=== PATIENT | female | born 1935 | race Caucasian/White ===

== ENCOUNTER 2018-11-10 09:35 | Inpatient (IN) | payer MEDICARE, OTHER ==
[~2018-11-10] VITALS: Ht 172.7 cm; Wt 104.3 kg
[~2018-11-10 09:35] MED LIST: ACET325T9 PO; ACID1TAB13 PO; AMOX500C PO; ASPI81TA50 PO; BISA10SU2 RC; CALC300T42 PO; CHOL100013 PO; CYAN250T PO; DOCU100C28 PO; DULO30CA2 PO; FENT1PAT17 TD; HYDR-2765 PO; HYDR28.3 TP; LEVO50TA5 PO; LOPE2CAP PO; MAGN400O7 PO; MAGN400T3 PO; METO-239 PO; MULT1TAB52 PO; NITR100C62 PO; POLY17PO29 PO; TIZA4TAB PO; UBID100C PO; WARF-78 PO
[2018-11-10 11:00] VITALS: BP 153/76
[2018-11-10] MEDS ORDERED: FAMO40TA4 PO (11:00)
[2018-11-10] MEDS ORDERED: AMLO5TAB10 PO (11:00)
[2018-11-10] MEDS ORDERED: ATOR20TA58 PO (11:00)
[2018-11-10] MEDS ORDERED: APIX2.5T PO (11:00)
[2018-11-10] MEDS ORDERED: CALC-515 PO (11:00)
[2018-11-10] MEDS ORDERED: AMIN30LI PO (11:00)
[2018-11-10] MEDS ORDERED: CRAN425C3 PO (11:00)
[2018-11-10] MEDS ORDERED: ACET325T9 PO (11:00)
[2018-11-10] MEDS ORDERED: FENT1PAT93 TD (11:09)
[2018-11-10] MEDS ORDERED: NYST15PO9 TP (11:10)
[2018-11-10] MEDS ORDERED: LEVO75TA5 PO (11:10)
[2018-11-10] MEDS ORDERED: SODI30SP NS (11:10)
[2018-11-10] MEDS ORDERED: METO25TA4 PO (11:10)
[2018-11-10] MEDS ORDERED: ONDA4TAB11 PO (11:10)
[2018-11-10] MEDS ORDERED: BISACODYL 5 MG TABLET.DR. PO PRN (12:00)
[2018-11-10] MEDS: LACTOBACILLUS RHAMNOSUS GG 1 CAPSULE. PO SCH ×2 (12:27→19:58)
[2018-11-10] MEDS: DOCUSATE SODIUM 100 MG CAPSULE. PO SCH (12:27)
[2018-11-10] MEDS: APIXABAN 2.5 MG TABLET. PO SCH ×2 (12:27→19:58)
[2018-11-10] MEDS: METOPROLOL TART IMMED RELEASE 25 MG TABLET. PO SCH (12:27)
[2018-11-10] MEDS: MAGNESIUM OXIDE 400 MG TABLET PO SCH (12:28)
[2018-11-10] MEDS: amLODIPine BESYLATE 5 MG TABLET PO SCH (12:29)
[2018-11-10] MEDS: POLYETHYLENE GLYCOL 3350 17 GM PACKET. PO SCH (12:29)
[2018-11-10] MEDS: FAMOTIDINE 20 MG TABLET. PO SCH (12:29)
[2018-11-10] MEDS: LEVOTHYROXINE 75 MCG TABLET PO SCH (12:30)
[2018-11-10] MEDS ORDERED: LOPERAMIDE 2 MG CAPSULE PO PRN (12:30)
[2018-11-10] MEDS: NYSTATIN TOPICAL POWDER 15GM BOTTLE. TP SCH ×2 (12:30→19:59)
[2018-11-10] MEDS ORDERED: SODIUM CHLORIDE 0.65% NASAL SPRAY 45ML BOTTLE. NS PRN (12:30)
[2018-11-10] MEDS: ACETAMINOPHEN 325 MG TABLET. PO SCH ×2 (12:30→20:00)
[2018-11-10] MEDS: CYANOCOBALAMIN (VITAMIN B-12) 1,000 MCG TABLET. PO SCH (12:30)
[2018-11-10] MEDS: MULTIVITAMIN with MINERAL TABLET. PO SCH (12:30)
[2018-11-10] MEDS: CHOLECALCIFEROL (VITAMIN D3) 1,000 UNIT TABLET PO SCH (12:30)
[2018-11-10] MEDS: ONDANSETRON ODT 4 MG TAB.RAPDIS. PO PRN ×2 (12:42→19:58)
[2018-11-10] MEDS: oxyCODONE/APAP 7.5/325 1 TAB TABLET PO PRN ×2 (12:43→19:59)
--- NOTE | 2018-11-10 13:52 | HP ---
ADMIT DATE: 11/10/2018 CHIEF COMPLAINT: Renal mass. HISTORY OF PRESENT ILLNESS: The patient is a pleasant 83-year-old female who presents with a renal mass. She was at [facility]. Her primary care doctor called me this morning and said they discovered a renal mass. She does have a history of a suprapubic Miller as well. I have accepted the patient as a transfer. She is now being examined in room 519. PAST MEDICAL HISTORY: Chronic anticoagulation, suprapubic Miller catheter, hypertension, chronic pain, arthritis, constipation, anemia, UTIs, hypothyroidism, GERD. ALLERGIES: MULTIPLE INCLUDING IODINE, PENICILLIN, SULFA, BACITRACIN, CEPHALEXIN, CIPRO, DEXAMETHASONE, DOXYCYCLINE, MORPHINE, MOXIFLOXACIN, NEOMYCIN, POLYMYXIN B, SILVER SULFADIAZINE, VANCOMYCIN. FAMILY HISTORY: Diabetes. SOCIAL HISTORY: She does not drink, smoke or take drugs. MEDICATIONS: Reviewed, please refer to the MRAD. REVIEW OF SYSTEMS: GENERAL: No history of weight change, weakness or fevers. SKIN: No bruising, hair changes or rashes. EYES: No blurred, double or loss of vision. NOSE AND THROAT: No history of nosebleeds, hoarseness or sore throat. HEART: No history of palpitations, chest pain or shortness of breath on exertion. LUNGS: Denies cough, hemoptysis, wheezing or shortness of breath. GASTROINTESTINAL: She complains of lower abdominal pain. GENITOURINARY: No history of frequency, urgency, hesitancy or nocturia. NEUROLOGIC: Denies history of numbness, tingling, tremor or weakness. PSYCHIATRIC: No history of panic, anxiety or depression. ENDOCRINE: No history of heat or cold intolerance, polyuria or polydipsia. EXTREMITIES: Denies muscle weakness, joint pain, pain on walking or stiffness. PHYSICAL EXAMINATION: VITAL SIGNS: Temperature is afebrile, pulse 92, respirations 18, blood pressure 144/90. GENERAL: She is alert, cooperative. HEART: Normal S1, S2. LUNGS: Clear to auscultation. ABDOMEN: Soft. There is a suprapubic Miller. ENDOCRINE: No thyromegaly. LYMPHATICS: No cervical nodes. HEMATOPOIETIC: No bruising. PSYCHIATRIC: She is stable. LABORATORY DATA: Pending. ASSESSMENT AND PLAN: Renal mass in a middle-aged female with above noted comorbidities. The patient has been admitted. We will consult Urology and Nephrology. Check CBC, BMP. DVT prophylaxis. Home meds, frequent labs. Full code. PROGNOSIS: Guarded. HAYDEE NEWTON DO DR: SG/chevy JOB#: [id number] / [id number]
--- NOTE | 2018-11-10 14:16 | PDOC2 ---
UROLOGY CONSULT Date of Consult Date of Consult DATE: 11/10/18 TIME: 14:01 Reason for Consult Reason for Consult: pyelonephritis, Rt renal stone; SP tube for ?hypotonic bladder, Chr UTI's; Mild R hydro; Generalized weakness and inanition Referring Physician Referring Physician: Sandro Identification/Chief Complaint Chief Complaint 83 yo WF w chr SP tube (10y) who had s/s L pyelo and was hospitalized for IV abx. She has migratory abdom pains Imaging revealed atrophic R kidney with a staghorn i lower pole and mild hydro, nl appearing L kidney except for a 1.3 cm hyperdense cyst. She had initial elev WBC (15) that decreased after abx tx. She was referred because of the L renal mass (benign) and chr cystitis. She has chr UTI's and has her SP Tube changed monthly. Source Source: Patient History of Present Illness Reason for Visit: abd pain on L side Current Medications Current Medications Current Medications Acetaminophen (Tylenol) 650 mg BID PO ; Start 11/10/18 at 12:30 Acetaminophen (Tylenol) 650 mg PRN Q8HRS PRN PO MILD PAIN; Start 11/10/18 at 12 :00 Amlodipine Besylate (Norvasc) 5 mg DAILY PO ; Start 11/10/18 at 12:30 Apixaban (Eliquis) 2.5 mg BID PO ; Start 11/10/18 at 12:30 Atorvastatin Calcium (Lipitor) 20 mg HS PO ; Start 11/10/18 at 21:00 Bisacodyl (Dulcolax Tab) 10 mg PRN Q12HRS PRN PO CONSTIPATION, 2nd CHOICE; Start 11/10/18 at 12:00 Cyanocobalamin (Vitamin B-12) 250 mcg DAILY PO ; Start 11/10/18 at 12:30 Docusate Sodium (Colace) 200 mg DAILY08 PO ; Start 11/10/18 at 12:30 Famotidine (Pepcid) 40 mg DAILY PO ; Start 11/10/18 at 12:30 Lactobacillus Rhamnosus (Culturelle) 1 cap BID PO ; Start 11/10/18 at 12:30 Levothyroxine Sodium (Synthroid) 75 mcg DAILYAC PO ; Start 11/10/18 at 12:30 Linezolid/Dextrose 300 ml @ 300 mls/hr Q12HR IV ; Start 11/10/18 at 13:00 Loperamide HCl (Imodium) 2 mg PRN QID PRN PO DIARRHEA; Start 11/10/18 at 12:30 Magnesium Hydroxide (Milk Of Magnesia) 400 mg PRN DAILY PRN PO CONSTIPATION; Start 11/10/18 at 12:00 Magnesium Oxide (Magnesium Oxide) 400 mg DAILY08 PO ; Start 11/10/18 at 12:30 Metoprolol Tartrate (Lopressor) 25 mg DAILY PO ; Start 11/10/18 at 12:30 Multivitamins (Thera M Plus) 1 tab DAILY08 PO ; Start 11/10/18 at 12:30 Non-Formulary Medication (Ubidecarenone (Coenzyme Q10)) 100 mg DAILY08 PO ; Start 11/11/18 at 08:00; Status UNV Nystatin (Nystop) 1 bob BID TP ; Start 11/10/18 at 12:30 Ondansetron HCl (Zofran Odt) 4 mg PRN Q6HRS PRN PO NAUSEA/VOMITING Last administered on 11/10/18at 12:42; Start 11/10/18 at 12:30 Oxycodone/ Acetaminophen (Percocet 7.5/ 325) 1 tab PRN Q6HRS PRN PO MODERATE TO SEVERE PAIN Last administered on 11/10/18at 12:43; Start 11/10/18 at 12:00 Polyethylene Glycol (miraLAX PACKET) 17 gm DAILY08 PO ; Start 11/10/18 at 12:30 Sodium Chloride (Saline Mist Nasal) 1 bob PRN Q1HR PRN NS NASAL CONGESTION; Start 11/10/18 at 12:30 Vitamin D (Vitamin D3) 1,000 unit DAILY PO ; Start 11/10/18 at 12:30 Allergies Allergies: Coded Allergies: Iodine and Iodide Containing Produc (Unverified Allergy, Intermediate, ) PENITENTIARY RESIDENT; REACTION AND SEVERITY WILL NEED VERIFIED PRE OP DOS Penicillins (Unverified Allergy, Intermediate, 03/15/15) Sulfa (Sulfonamide Antibiotics) (Unverified Allergy, Intermediate, 03/15/15 ) bacitracin (Unverified Allergy, Intermediate, 03/15/15) cephalexin (Unverified Allergy, Intermediate, 03/15/15) ciprofloxacin (Unverified Allergy, Intermediate, 03/15/15) dexamethasone (Unverified Allergy, Intermediate, 03/15/15) doxycycline (Unverified Allergy, Intermediate, 03/15/15) morphine (Unverified Allergy, Intermediate, 03/15/15) moxifloxacin (Unverified Allergy, Intermediate, 03/15/15) neomycin (Unverified Allergy, Intermediate, 03/15/15) polymyxin B (Unverified Allergy, Intermediate, 03/15/15) silver sulfadiazine (Unverified Allergy, Intermediate, 03/15/15) vancomycin (Unverified Allergy, Intermediate, 03/15/15) ROS Review Of Systems: CONSTITUTIONAL: No fever or chills EYES: No recent changes SKIN: No rash or itching CARDIOVASCULAR: No chest pain, syncope, palpitations, or edema RESPIRATORY: No SOB or cough GASTROINTESTINAL: No nausea, vomiting or abdominal pain NEUROLOGICAL: No headaches or weakness ENDOCRINE: No cold or heat intolerance GENITOURINARY: No urgency or frequency of urination MUSCULOSKELETAL: No back pain or joint pain LYMPHATICS: No enlarged lymph nodes PSYCHIATRIC: No anxiety or depression Physical Exam Physical Exam: General: Pleasant, no acute distress, well groomed, obese, pale, weak Eyes: conjunctiva anicteric, eyes full range of motion ENT: moist oral mucosa, normal dentition Neck: Trachea midline, no masses Respiratory: unlabored breathing, not using accessory muscles, no crackles or wheezes Cardiovascular: Regular rate and rhythm, no peripheral edema Abdomen: nontender, nondistended, no hepatosplenomegaly, no masses, no tenderness in abd or flank regions Skin: no rashes or skin lesions on visualized skin Psych: normal mood, affect. Alert and oriented x 3. Vitals VITALS Vital Signs Date Time Temp Pulse Resp B/P (MAP) Pulse Ox O2 Delivery O2 Flow Rate FiO2 11/10/18 13:43 Room Air 11/10/18 11:00 97.8 74 18 153/76 (101) 94 97.8 Labs Labs Nl WBC and creat is 0.[address] imaging reveals nl L kidney, Rt kidney is atrophic w mild hydro and a 3.7 cm stone in R lower pole extending into renal pelvis. Assessment/Plan Assessment/Plan Culture urine and tx if needed Change SP tube in Radiology. No tx for the hyperdense cyst in L kidney. No tx for R staghorn. WALDO JIMÉNEZ MD Nov 10, 2018 14:15
[2018-11-10 14:56] VITALS: BP 127/79
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
[2018-11-10 19:00] VITALS: BP 177/92
[2018-11-10] MEDS: ATORVASTATIN CALCIUM 20 MG TABLET PO SCH (19:58)
--- NOTE | 2018-11-10 22:07 | NUR ---
Received orders from Dr. Elder for tramadol 50mg Q6 PRN. While putting in this order, an interaction notification appeared. Erased order. Will consult with MD in AM to decide if it is an acceptable interaction.
[2018-11-10] MEDS ORDERED: diphenhydrAMINE HCL 25 MG CAPSULE PO PRN (22:15)
[2018-11-10] MEDS: fentaNYL PF VIAL 100 MCG/2 ML VIAL IV PRN (22:31)
[2018-11-10 23:00] VITALS: BP 150/75
[2018-11-11 03:00] VITALS: BP 134/72
[2018-11-11] MEDS: oxyCODONE/APAP 7.5/325 1 TAB TABLET PO PRN ×2 (06:17→16:41)
[2018-11-11] MEDS: ONDANSETRON ODT 4 MG TAB.RAPDIS. PO PRN (06:17)
[2018-11-11 07:00] VITALS: BP 148/76
[2018-11-11] MEDS ORDERED: NON FORMULARY ITEM (Ubidecarenone (Coenzyme Q10) 100 MG) PO SCH (08:00)
[2018-11-11 08:15] LABS: BASO % 0 % (0-3); EOS # 0.3 x10^3/uL (0.0-0.7); EOS % 4 % (0-3); HEMATOCRIT 34.4 % (36.0-47.0); HEMOGLOBIN 11.2 g/dL (12.0-15.5); LYMPH # 1.2 x10^3/uL (1.0-4.8); LYMPH % 19 % (24-48); MEAN CORPUSCULAR HEMOGLOBIN 27 pg (25-35); MEAN CORPUSCULAR HGB CONC 33 g/dL (31-37); MEAN CORPUSCULAR VOLUME 84 fL (79-100); MONO # 0.4 x10^3/uL (0.0-1.1); MONO % 6 % (0-9); NEUT # 4.6 x10^3uL (1.8-7.7); NEUT % 71 % (31-73); PLATELET COUNT 227 x10^3/uL (140-400); WHITE BLOOD COUNT 6.6 x10^3/uL (4.0-11.0)
[2018-11-11] MEDS ORDERED: fentaNYL PF VIAL 100 MCG/2 ML VIAL IV PRN (08:15)
[2018-11-11 08:18] LABS: CALCIUM 8.8 mg/dL (8.5-10.1); CREATININE 0.8 mg/dL (0.6-1.0); GFR 68.8; POTASSIUM 3.7 mmol/L (3.5-5.1)
[2018-11-11] MEDS: LEVOTHYROXINE 75 MCG TABLET PO SCH (08:26)
[2018-11-11] MEDS: MULTIVITAMIN with MINERAL TABLET. PO SCH (08:26)
[2018-11-11] MEDS: MAGNESIUM OXIDE 400 MG TABLET PO SCH (08:26)
[2018-11-11] MEDS: LACTOBACILLUS RHAMNOSUS GG 1 CAPSULE. PO SCH ×2 (08:26→20:57)
[2018-11-11] MEDS: DOCUSATE SODIUM 100 MG CAPSULE. PO SCH (08:26)
[2018-11-11] MEDS: METOPROLOL TART IMMED RELEASE 25 MG TABLET. PO SCH (08:27)
[2018-11-11] MEDS: amLODIPine BESYLATE 5 MG TABLET PO SCH (08:27)
[2018-11-11] MEDS: APIXABAN 2.5 MG TABLET. PO SCH ×2 (08:27→20:57)
[2018-11-11] MEDS: FAMOTIDINE 20 MG TABLET. PO SCH (08:28)
[2018-11-11] MEDS: CHOLECALCIFEROL (VITAMIN D3) 1,000 UNIT TABLET PO SCH (08:28)
[2018-11-11] MEDS: POLYETHYLENE GLYCOL 3350 17 GM PACKET. PO SCH (08:44)
[2018-11-11] MEDS: CYANOCOBALAMIN (VITAMIN B-12) 1,000 MCG TABLET. PO SCH (08:45)
[2018-11-11] MEDS: ACETAMINOPHEN 325 MG TABLET. PO PRN ×2 (08:45→21:00)
--- NOTE | 2018-11-11 08:51 | PDOC ---
SUBJECTIVE Subjective Patient last had her SP tube changed on the of last month and she is due for a change. Some generalized pain today in the left lower quadrant. OBJECTIVE Objective Physical Exam: General appearance: Alert and Oriented Head: Normocephalic, without obvious abnormality Eyes: conjunctivae/corneas clear. PERRL, EOM's intact. Fundi benign Lungs: Regular respirations, non labored breathing Abdomen: soft, obese +generalized tenderness on the left side with palpation, non tender otherwise. Sp tube in place draining clear yellow urine; no signs or symptoms of infection at site. Pelvic: deferred Extremities: extremities normal, atraumatic, no cyanosis or edema Pulses: 2+ and symmetric Lymph nodes: Cervical, supraclavicular, and axillary nodes normal. Vital Signs Vital Signs Date Time Temp Pulse Resp B/P (MAP) Pulse Ox O2 Delivery O2 Flow Rate FiO2 11/11/18 08:27 74 148/76 11/11/18 08:27 74 148/76 11/11/18 07:17 Room Air 11/11/18 07:00 97.8 74 18 148/76 (100) 96 Nasal Cannula 2.0 97.8 11/11/18 06:17 17 93 Room Air 11/11/18 03:00 97.5 75 16 134/72 (92) 93 Room Air 97.5 11/10/18 23:15 14 96 Room Air 11/10/18 23:00 97.8 69 18 150/75 (100) 96 Room Air 97.8 11/10/18 22:31 16 96 Room Air 11/10/18 21:00 17 96 11/10/18 20:00 Room Air 11/10/18 19:59 17 96 Room Air 11/10/18 19:00 98.2 85 17 177/92 (120) 92 Room Air 98.2 11/10/18 14:56 97.8 73 18 127/79 (95) 96 Room Air 97.8 11/10/18 12:43 Room Air 11/10/18 12:14 Room Air 11/10/18 11:00 97.8 74 18 153/76 (101) 94 Room Air 97.8 I & O Intake and Output 11/11/18 07:00 Intake Total 1180 ml Output Total 950 ml Balance 230 ml Intake Oral 1180 ml Output Urine Total 950 ml PHYSICAL EXAM Physical Exam Physical Exam: General appearance: Alert and Oriented Head: Normocephalic, without obvious abnormality Eyes: conjunctivae/corneas clear. PERRL, EOM's intact. Fundi benign Lungs: Regular respirations, non labored breathing Abdomen: soft, obese +generalized tenderness on the left side with palpation, non tender otherwise.Sp tube in place draining clear yellow urine; no signs or symptoms of infection at site. Pelvic: deferred Extremities: extremities normal, atraumatic, no cyanosis or edema Pulses: 2+ and symmetric Lymph nodes: Cervical, supraclavicular, and axillary nodes normal. ASSESSMENT/PLAN Assessment/Plan SP tube=Nursing to please change SP tube and monitor output and patient pain for the next few hours. If pain increases or SP tube not draining, may order cystogram for IR to confirm placement. I have discussed with Dr. Villanueva of IR and Nursing staff. Please obtain UA with SP cath change Treat infection. Do not recommend intervention for staghorn stone. Call placed to radiology to discuss change of SP tubing there. Will follow. COMMENT Lab Laboratory Tests Test 11/11/18 07:40 White Blood Count 6.6 x10^3/uL (4.0-11.0) Red Blood Count 4.10 x10^6/uL (3.50-5.40) Hemoglobin 11.2 g/dL (12.0-15.5) Hematocrit 34.4 % (36.0-47.0) Mean Corpuscular Volume 84 fL (79-100) Mean Corpuscular Hemoglobin 27 pg (25-35) Mean Corpuscular Hemoglobin Concent 33 g/dL (31-37) Red Cell Distribution Width 14.0 % (11.5-14.5) Platelet Count 227 x10^3/uL (140-400) Neutrophils (%) (Auto) 71 % (31-73) Lymphocytes (%) (Auto) 19 % (24-48) Monocytes (%) (Auto) 6 % (0-9) Eosinophils (%) (Auto) 4 % (0-3) Basophils (%) (Auto) 0 % (0-3) Neutrophils # (Auto) 4.6 x10^3uL (1.8-7.7) Lymphocytes # (Auto) 1.2 x10^3/uL (1.0-4.8) Monocytes # (Auto) 0.4 x10^3/uL (0.0-1.1) Eosinophils # (Auto) 0.3 x10^3/uL (0.0-0.7) Basophils # (Auto) 0.0 x10^3/uL (0.0-0.2) Sodium Level 143 mmol/L (136-145) Potassium Level 3.7 mmol/L (3.5-5.1) Chloride Level 105 mmol/L (98-107) Carbon Dioxide Level 29 mmol/L (21-32) Anion Gap 9 (6-14) Blood Urea Nitrogen 10 mg/dL (7-20) Creatinine 0.8 mg/dL (0.6-1.0) Estimated GFR (Cockcroft-Gault) 68.8 Glucose Level 103 mg/dL (70-99) Calcium Level 8.8 mg/dL (8.5-10.1) BEN CHINO APRN Nov 11, 2018 08:51
[2018-11-11] MEDS: NYSTATIN TOPICAL POWDER 15GM BOTTLE. TP SCH ×2 (09:00→20:58)
[2018-11-11 10:53] VITALS: BP 174/98
[2018-11-11] MEDS: fentaNYL PF VIAL 100 MCG/2 ML VIAL IV PRN (11:04)
--- NOTE | 2018-11-11 11:21 | PDOC ---
PROGRESS NOTES Chief Complaint Chief Complaint Indwelling Suprapubic catheter-gets change every of the month Atrophic right kidney Exophytic left renal cyst Staghorn calculi-asymptomatic, no intervention per urology Obesity, BMI 35 Generalized weakness/[facility] resident Possible history of UTI History of osteoarthritis-basically bedbound History of Present Illness History of Present Illness SHe is a long-term resident of [facility] She came from [facility] for need for urology Urology has seen the patient and is asking IR to change supra pubic catheter Urine sample is still pending-we'll get a sample once catheter has been changed Needs the catheter changed every month Senior Net Developer recommended vitamin C - we'll do that. colleague started patient on Zyvox Patient a little bit nauseated today bucket at bedside PLAN: Urine sample once we change the Miller catheter Miller catheter needs to be changed every month IR supposed to help change supra pubic catheter as ordered by urology Continue Zyvox for now Follow urine culture Vitamin C Antinausea meds Full code We'll go back to SNU on discharge Vitals Vitals Vital Signs Date Time Temp Pulse Resp B/P (MAP) Pulse Ox O2 Delivery O2 Flow Rate FiO2 11/11/18 11:04 Room Air 11/11/18 10:53 97.9 71 18 174/98 (123) 94 97.9 11/11/18 07:00 2.0 Physical Exam General: Alert, Oriented X3, Cooperative, No acute distress, Other (crit at bedside) Heart: Regular rate, Normal S1, Normal S2 Lungs: Clear Abdomen: Normal bowel sounds, Soft, No tenderness Extremities: No clubbing, No cyanosis, No edema Skin: No rashes, No breakdown, No significant lesion Labs LABS Laboratory Tests Test 11/11/18 07:40 White Blood Count 6.6 x10^3/uL (4.0-11.0) Red Blood Count 4.10 x10^6/uL (3.50-5.40) Hemoglobin 11.2 g/dL (12.0-15.5) Hematocrit 34.4 % (36.0-47.0) Mean Corpuscular Volume 84 fL (79-100) Mean Corpuscular Hemoglobin 27 pg (25-35) Mean Corpuscular Hemoglobin Concent 33 g/dL (31-37) Red Cell Distribution Width 14.0 % (11.5-14.5) Platelet Count 227 x10^3/uL (140-400) Neutrophils (%) (Auto) 71 % (31-73) Lymphocytes (%) (Auto) 19 % (24-48) Monocytes (%) (Auto) 6 % (0-9) Eosinophils (%) (Auto) 4 % (0-3) Basophils (%) (Auto) 0 % (0-3) Neutrophils # (Auto) 4.6 x10^3uL (1.8-7.7) Lymphocytes # (Auto) 1.2 x10^3/uL (1.0-4.8) Monocytes # (Auto) 0.4 x10^3/uL (0.0-1.1) Eosinophils # (Auto) 0.3 x10^3/uL (0.0-0.7) Basophils # (Auto) 0.0 x10^3/uL (0.0-0.2) Sodium Level 143 mmol/L (136-145) Potassium Level 3.7 mmol/L (3.5-5.1) Chloride Level 105 mmol/L (98-107) Carbon Dioxide Level 29 mmol/L (21-32) Anion Gap 9 (6-14) Blood Urea Nitrogen 10 mg/dL (7-20) Creatinine 0.8 mg/dL (0.6-1.0) Estimated GFR (Cockcroft-Gault) 68.8 Glucose Level 103 mg/dL (70-99) Calcium Level 8.8 mg/dL (8.5-10.1) Review of Systems Review of Systems nauseated, no other symptoms Comment Review of Relevant I have reviewed the following items king (where applicable) has been applied. Labs Laboratory Tests Test 11/11/18 07:40 White Blood Count 6.6 x10^3/uL (4.0-11.0) Red Blood Count 4.10 x10^6/uL (3.50-5.40) Hemoglobin 11.2 g/dL (12.0-15.5) Hematocrit 34.4 % (36.0-47.0) Mean Corpuscular Volume 84 fL (79-100) Mean Corpuscular Hemoglobin 27 pg (25-35) Mean Corpuscular Hemoglobin Concent 33 g/dL (31-37) Red Cell Distribution Width 14.0 % (11.5-14.5) Platelet Count 227 x10^3/uL (140-400) Neutrophils (%) (Auto) 71 % (31-73) Lymphocytes (%) (Auto) 19 % (24-48) Monocytes (%) (Auto) 6 % (0-9) Eosinophils (%) (Auto) 4 % (0-3) Basophils (%) (Auto) 0 % (0-3) Neutrophils # (Auto) 4.6 x10^3uL (1.8-7.7) Lymphocytes # (Auto) 1.2 x10^3/uL (1.0-4.8) Monocytes # (Auto) 0.4 x10^3/uL (0.0-1.1) Eosinophils # (Auto) 0.3 x10^3/uL (0.0-0.7) Basophils # (Auto) 0.0 x10^3/uL (0.0-0.2) Sodium Level 143 mmol/L (136-145) Potassium Level 3.7 mmol/L (3.5-5.1) Chloride Level 105 mmol/L (98-107) Carbon Dioxide Level 29 mmol/L (21-32) Anion Gap 9 (6-14) Blood Urea Nitrogen 10 mg/dL (7-20) Creatinine 0.8 mg/dL (0.6-1.0) Estimated GFR (Cockcroft-Gault) 68.8 Glucose Level 103 mg/dL (70-99) Calcium Level 8.8 mg/dL (8.5-10.1) Laboratory Tests Test 11/11/18 07:40 White Blood Count 6.6 x10^3/uL (4.0-11.0) Red Blood Count 4.10 x10^6/uL (3.50-5.40) Hemoglobin 11.2 g/dL (12.0-15.5) Hematocrit 34.4 % (36.0-47.0) Mean Corpuscular Volume 84 fL (79-100) Mean Corpuscular Hemoglobin 27 pg (25-35) Mean Corpuscular Hemoglobin Concent 33 g/dL (31-37) Red Cell Distribution Width 14.0 % (11.5-14.5) Platelet Count 227 x10^3/uL (140-400) Neutrophils (%) (Auto) 71 % (31-73) Lymphocytes (%) (Auto) 19 % (24-48) Monocytes (%) (Auto) 6 % (0-9) Eosinophils (%) (Auto) 4 % (0-3) Basophils (%) (Auto) 0 % (0-3) Neutrophils # (Auto) 4.6 x10^3uL (1.8-7.7) Lymphocytes # (Auto) 1.2 x10^3/uL (1.0-4.8) Monocytes # (Auto) 0.4 x10^3/uL (0.0-1.1) Eosinophils # (Auto) 0.3 x10^3/uL (0.0-0.7) Basophils # (Auto) 0.0 x10^3/uL (0.0-0.2) Sodium Level 143 mmol/L (136-145) Potassium Level 3.7 mmol/L (3.5-5.1) Chloride Level 105 mmol/L (98-107) Carbon Dioxide Level 29 mmol/L (21-32) Anion Gap 9 (6-14) Blood Urea Nitrogen 10 mg/dL (7-20) Creatinine 0.8 mg/dL (0.6-1.0) Estimated GFR (Cockcroft-Gault) 68.8 Glucose Level 103 mg/dL (70-99) Calcium Level 8.8 mg/dL (8.5-10.1) Medications Current Medications Acetaminophen (Tylenol) 650 mg BID PO ; Start 11/10/18 at 12:30; Stop 11/10/18 at 22:06; Status DC Acetaminophen (Tylenol) 650 mg PRN Q8HRS PRN PO MILD PAIN Last administered on 11/11/18at 08:45; Start 11/10/18 at 12:00 Amlodipine Besylate (Norvasc) 5 mg DAILY PO Last administered on 11/11/18at 08: 27; Start 11/10/18 at 12:30 Apixaban (Eliquis) 2.5 mg BID PO Last administered on 11/11/18at 08:27; Start at 12:30 Atorvastatin Calcium (Lipitor) 20 mg HS PO Last administered on 11/10/18at 19:58 ; Start 11/10/18 at 21:00 Docusate Sodium (Colace) 200 mg DAILY08 PO Last administered on 11/11/18 08:26 ; Start 11/10/18 at 12:30 Levothyroxine Sodium (Synthroid) 75 mcg DAILYAC PO Last administered on 08:26; Start 11/10/18 at 12:30 Magnesium Hydroxide (Milk Of Magnesia) 400 mg PRN DAILY PRN PO CONSTIPATION; Start 11/10/18 at 12:00 Metoprolol Tartrate (Lopressor) 25 mg DAILY PO Last administered on 11/11/18 08:27; Start 11/10/18 at 12:30 Nystatin (Nystop) 1 bob BID TP Last administered on 11/10/18 19:59; Start at 12:30 Vitamin D (Vitamin D3) 1,000 unit DAILY PO Last administered on 11/11/18 08:28 ; Start 11/10/18 at 12:30 Cyanocobalamin (Vitamin B-12) 250 mcg DAILY PO Last administered on 11/11/18 08:45; Start 11/10/18 at 12:30 Famotidine (Pepcid) 40 mg DAILY PO Last administered on 11/11/18 08:28; Start 11/10/18 at 12:30 Loperamide HCl (Imodium) 2 mg PRN QID PRN PO DIARRHEA; Start 11/10/18 at 12:30 Magnesium Oxide (Magnesium Oxide) 400 mg DAILY08 PO Last administered on 08:26; Start 11/10/18 at 12:30 Multivitamins (Thera M Plus) 1 tab DAILY08 PO Last administered on 11/11/18 08 :26; Start 11/10/18 at 12:30 Ondansetron HCl (Zofran Odt) 4 mg PRN Q6HRS PRN PO NAUSEA/VOMITING Last administered on 11/11/18 06:17; Start 11/10/18 at 12:30 Polyethylene Glycol (miraLAX PACKET) 17 gm DAILY08 PO Last administered on 11/11 08:44; Start 11/10/18 at 12:30 Sodium Chloride (Saline Mist Nasal) 1 bob PRN Q1HR PRN NS NASAL CONGESTION; Start 11/10/18 at 12:30 Non-Formulary Medication (Ubidecarenone (Coenzyme Q10)) 100 mg DAILY08 PO ; Start 11/11/18 at 08:00; Status UNV Oxycodone/ Acetaminophen (Percocet 7.5/ 325) 1 tab PRN Q6HRS PRN PO MODERATE TO SEVERE PAIN Last administered on 11/11/18at 06:17; Start 11/10/18 at 12:00 Linezolid/Dextrose 300 ml @ 300 mls/hr Q12HR IV Last administered on at 08:50; Start 11/10/18 at 13:00 Lactobacillus Rhamnosus (Culturelle) 1 cap BID PO Last administered on at 08:26; Start 11/10/18 at 12:30 Bisacodyl (Dulcolax Tab) 10 mg PRN Q12HRS PRN PO CONSTIPATION, 2nd CHOICE; Start 11/10/18 at 12:00 Fentanyl Citrate (Fentanyl 2ml Vial) 50 mcg PRN Q2HR PRN IV PAIN Last administered on 11/11/18at 11:04; Start 11/10/18 at 22:15 Diphenhydramine HCl (Benadryl) 25 mg PRN QHS PRN PO INSOMNIA Last administered on 11/10/18at 22:30; Start 11/10/18 at 22:15 Fentanyl Citrate (Fentanyl 2ml Vial) 50 mcg PRN Q2HR PRN IV PAIN; Start at 08:15 Active Scripts Active Reported Saline Nasal [place] (Sodium Chloride) 30 Ml [place] 1 [place] NS PRN Q1HR PRN Ondansetron Hcl 4 Mg Tablet 1 Tab PO PRN Q6HRS Nystatin 15 Gm Powder 15 Gm TP BID Metoprolol Tartrate 25 Mg Tablet 25 Mg PO DAILY Levothyroxine Sodium 75 Mcg Tablet 75 Mcg PO DAILYAC DURAGESIC 100mcg/hr (Fentanyl) 1 Each Patch.td72 1 Patch TD Q72H Famotidine 40 Mg Tablet 40 Mg PO DAILY Cranberry (Cranberry Extract) 425 Mg Capsule 850 Mg PO BID Rolaids Chewable Tablet (Calcium Carb/Magnesium Hydrox) 1 Each Tab.chew 1 Each PO PRN Q6HRS PRN Atorvastatin Calcium 20 Mg Tablet 20 Mg PO HS Eliquis (Apixaban) 2.5 Mg Tablet 2.5 Mg PO BID Amlodipine Besylate 5 Mg Tablet 5 Mg PO DAILY Pro-Stat Liquid (Amino Acids/Protein Hydrolys) 30 Ml Liquid 30 Ml PO DAILY Tylenol (Acetaminophen) 325 Mg Tablet 650 Mg PO PRN Q8HRS PRN Milk Of Magnesia (Magnesium Hydroxide) 400 Mg/5 Ml Oral.susp 400 Mg PO PRN DAILY PRN Loperamide (Loperamide Hcl) 2 Mg Capsule 2 Mg PO PRN QID PRN Bisacodyl 10 Mg Supp.rect 10 Mg RC PRN DAILY PRN Vitamin B-12 (Cyanocobalamin (Vitamin B-12)) 250 Mcg Tablet 250 Mcg PO DAILY Floranex Tablet (Acidophilus/Bulgaricus) 1 Each Tablet 1 Each PO BID Vitamin D (Cholecalciferol (Vitamin D3)) 1,000 Unit Capsule 1,000 Unit PO DAILY Miralax (Polyethylene Glycol 3350) 17 Gm Powd.pack 1 Pkt PO DAILY08 Multivitamins (Multivitamin) 1 Each Tablet 1 Each PO DAILY08 Magnesium Oxide 400 Mg Tablet 400 Mg PO DAILY08 Docusate Sodium 100 Mg Capsule 200 Mg PO DAILY08 Coenzyme Q10 (Ubidecarenone) 100 Mg Capsule 100 Mg PO DAILY08 Tylenol (Acetaminophen) 325 Mg Tablet 650 Mg PO BID Vitals/I & O Vital Sign - Last 24 Hours 11/10/18 11/10/18 11/10/18 11/10/18 12:14 12:43 14:56 19:00 Temp 97.8 98.2 97.8 98.2 Pulse 73 85 Resp 18 17 B/P (MAP) 127/79 (95) 177/92 (120) Pulse Ox 96 92 O2 Delivery Room Air Room Air Room Air Room Air 11/10/18 11/10/18 11/10/18 11/10/18 19:59 20:00 21:00 22:31 Resp 17 17 16 Pulse Ox 96 96 96 O2 Delivery Room Air Room Air Room Air 11/10/18 11/10/18 11/11/18 11/11/18 23:00 23:15 03:00 06:17 Temp 97.8 97.5 97.8 97.5 Pulse 69 75 Resp 18 14 16 17 B/P (MAP) 150/75 (100) 134/72 (92) Pulse Ox 96 96 93 93 O2 Delivery Room Air Room Air Room Air Room Air 11/11/18 11/11/18 11/11/18 11/11/18 07:00 07:17 08:27 08:27 Temp 97.8 97.8 Pulse 74 74 74 Resp 18 B/P (MAP) 148/76 (100) 148/76 148/76 Pulse Ox 96 O2 Delivery Nasal Cannula Room Air O2 Flow Rate 2.0 11/11/18 11/11/18 10:53 11:04 Temp 97.9 97.9 Pulse 71 Resp 18 B/P (MAP) 174/98 (123) Pulse Ox 94 O2 Delivery Room Air Room Air Intake and Output 11/10/18 11/10/18 11/11/18 15:00 23:00 07:00 Intake Total 550 ml 600 ml 30 ml Output Total 800 ml 150 ml Balance 550 ml -200 ml -120 ml DESTINY GRANADO MD Nov 11, 2018 11:21
--- NOTE | 2018-11-11 11:49 | NUR ---
SW consulted to address concerns pt has in [place]. Chart reviewed. Pt is LTC resident at [facility], phone: [phone], fax: [phone]. Spoke with pt and daughter, Milady in room. Pt and daughter report, pt has been losing belongings at facility and they had a already made report to DON. Pt reported [facility] but has misplaced phone number. Pt also reported 'someone from the state had come in to talk to her about the matter'. SW provided pt and daughter with [facility] contact information and notified them they are able to call. Daughter believes a report was already filed as someone had already visited pt at facility but she will file another report if needed. Pt and daughter agreeable with pt returning back to [facility] [place]. MICHELA confirmed dc plan with Miguel at facility as well. Will continue to follow.
[2018-11-11] MEDS: ASCORBIC ACID 500 MG TABLET PO SCH (13:19)
[2018-11-11] MEDS: ANTI-COAG MONITOR BY PHARMACY. MC PRN (14:07)
--- NOTE | 2018-11-11 14:18 | NUR ---
Upon trying to remove smith from suprapubic entrance site I met with resistance. At this time smith catheter reinserted and Urology BILLING SPECIALIST Desi Weinstein notified who was on unit at the time. She came and saw what was happening and also reinserted tube. Balloon was reinflated at this time and will be left until can be changed by urology. Will continue to monitor patient for any changes.
[2018-11-11] MEDS ORDERED: diphenhydrAMINE HCL 25 MG CAPSULE PO PRN (14:30)
[2018-11-11 15:00] VITALS: BP 180/89
[2018-11-11] MEDS: MAGNESIUM HYDROXIDE 2,400 MG/30 ML ORAL.SUSP. PO PRN (15:22)
[2018-11-11 19:00] VITALS: BP 156/97
[2018-11-11] MEDS: ATORVASTATIN CALCIUM 20 MG TABLET PO SCH (20:57)
--- NOTE | 2018-11-11 21:30 | NUR ---
Patient has refused to take 2100 dose of linezolid IV, Patient states that she is allergic to the medication and that her tongue, throat, and face are swollen. The patient also stated the the medication has given her ulcers on her tongue and in her throat. This RN examined the patient's tongue and throat and saw no evidence of ulcers or swelling, the patient's face is not swollen either. This RN will continue to monitor the patient at this time.
[2018-11-11 23:00] VITALS: BP 132/88
[2018-11-12] MEDS: oxyCODONE/APAP 7.5/325 1 TAB TABLET PO PRN ×3 (00:20→21:23)
[2018-11-12] MEDS: ONDANSETRON ODT 4 MG TAB.RAPDIS. PO PRN ×2 (00:20→09:22)
[2018-11-12 03:00] VITALS: BP 156/80
[2018-11-12 06:11] LABS: BASO % 0 % (0-3); EOS # 0.3 x10^3/uL (0.0-0.7); EOS % 4 % (0-3); HEMOGLOBIN 11.4 g/dL (12.0-15.5); LYMPH # 1.6 x10^3/uL (1.0-4.8); LYMPH % 25 % (24-48); MEAN CORPUSCULAR HEMOGLOBIN 27 pg (25-35); MEAN CORPUSCULAR HGB CONC 33 g/dL (31-37); MEAN CORPUSCULAR VOLUME 84 fL (79-100); MONO # 0.5 x10^3/uL (0.0-1.1); MONO % 7 % (0-9); NEUT # 4.2 x10^3uL (1.8-7.7); NEUT % 64 % (31-73); PLATELET COUNT 239 x10^3/uL (140-400); RED BLOOD COUNT 4.15 x10^6/uL (3.50-5.40); RED CELL DISTRIBUTION WIDTH 14.1 % (11.5-14.5); WHITE BLOOD COUNT 6.5 x10^3/uL (4.0-11.0)
[2018-11-12 06:33] LABS: CALCIUM 8.9 mg/dL (8.5-10.1); CREATININE 0.8 mg/dL (0.6-1.0); GFR 68.8; POTASSIUM 3.6 mmol/L (3.5-5.1)
[2018-11-12 07:00] VITALS: BP 150/88
--- NOTE | 2018-11-12 09:16 | PDOC ---
SUBJECTIVE Subjective Doing Ok today, no complaints. Nursing staff was unable to change SP tube yesterday; it would not come out even with trouble shooting. OBJECTIVE Objective Physical Exam: General appearance: Alert and Oriented Head: Normocephalic, without obvious abnormality Eyes: conjunctivae/corneas clear. PERRL, EOM's intact. Fundi benign Lungs: Regular respirations, non labored breathing Abdomen: soft, obese +generalized tenderness on the left side with palpation, non tender otherwise.Sp tube in place draining clear yellow urine; no signs or symptoms of infection at site. Pelvic: deferred Extremities: extremities normal, atraumatic, no cyanosis or edema Pulses: 2+ and symmetric Lymph nodes: Cervical, supraclavicular, and axillary nodes normal. Vital Signs Vital Signs Date Time Temp Pulse Resp B/P (MAP) Pulse Ox O2 Delivery O2 Flow Rate FiO2 11/12/18 07:00 98.1 87 19 150/88 (108) 100 Room Air 98.1 11/12/18 03:00 97.5 75 16 156/80 (105) 92 Room Air 97.5 11/12/18 00:20 Room Air 11/11/18 23:00 97.5 89 16 132/88 (103) 94 Room Air 97.5 11/11/18 20:00 Room Air 11/11/18 19:15 95 Room Air 2.0 11/11/18 19:00 98.0 81 16 156/97 (116) 95 Room Air 98.0 11/11/18 16:41 Room Air 11/11/18 15:00 97.9 77 19 180/89 (119) 95 Room Air 97.9 11/11/18 11:34 Room Air 11/11/18 11:04 Room Air 11/11/18 10:53 97.9 71 18 174/98 (123) 94 Room Air 97.9 I & O Intake and Output 11/12/18 07:00 Intake Total 400 ml Output Total 850 ml Balance -450 ml Intake Oral 100 ml IV Total 300 ml Output Urine Total 850 ml PHYSICAL EXAM Physical Exam Physical Exam: General appearance: Alert and Oriented Head: Normocephalic, without obvious abnormality Eyes: conjunctivae/corneas clear. PERRL, EOM's intact. Fundi benign Lungs: Regular respirations, non labored breathing Abdomen: soft, obese +generalized tenderness on the left side with palpation, non tender otherwise.Sp tube in place draining clear yellow urine; no signs or symptoms of infection at site. Pelvic: deferred Extremities: extremities normal, atraumatic, no cyanosis or edema Pulses: 2+ and symmetric Lymph nodes: Cervical, supraclavicular, and axillary nodes normal. ASSESSMENT/PLAN Assessment/Plan Leave SP tube in place for now, nursing to maintain. A cystogram has been ordered to help identify reason catheter will not come out. Do not recommend intervention for staghorn stone. Will follow. COMMENT Lab Laboratory Tests Test 11/12/18 05:50 White Blood Count 6.5 x10^3/uL (4.0-11.0) Red Blood Count 4.15 x10^6/uL (3.50-5.40) Hemoglobin 11.4 g/dL (12.0-15.5) Hematocrit 35.0 % (36.0-47.0) Mean Corpuscular Volume 84 fL (79-100) Mean Corpuscular Hemoglobin 27 pg (25-35) Mean Corpuscular Hemoglobin Concent 33 g/dL (31-37) Red Cell Distribution Width 14.1 % (11.5-14.5) Platelet Count 239 x10^3/uL (140-400) Neutrophils (%) (Auto) 64 % (31-73) Lymphocytes (%) (Auto) 25 % (24-48) Monocytes (%) (Auto) 7 % (0-9) Eosinophils (%) (Auto) 4 % (0-3) Basophils (%) (Auto) 0 % (0-3) Neutrophils # (Auto) 4.2 x10^3uL (1.8-7.7) Lymphocytes # (Auto) 1.6 x10^3/uL (1.0-4.8) Monocytes # (Auto) 0.5 x10^3/uL (0.0-1.1) Eosinophils # (Auto) 0.3 x10^3/uL (0.0-0.7) Basophils # (Auto) 0.0 x10^3/uL (0.0-0.2) Sodium Level 143 mmol/L (136-145) Potassium Level 3.6 mmol/L (3.5-5.1) Chloride Level 105 mmol/L (98-107) Carbon Dioxide Level 31 mmol/L (21-32) Anion Gap 7 (6-14) Blood Urea Nitrogen 10 mg/dL (7-20) Creatinine 0.8 mg/dL (0.6-1.0) Estimated GFR (Cockcroft-Gault) 68.8 Glucose Level 103 mg/dL (70-99) Calcium Level 8.9 mg/dL (8.5-10.1) BEN CHINO APRN Nov 12, 2018 09:16
[2018-11-12] MEDS: FAMOTIDINE 20 MG TABLET. PO SCH (09:31)
[2018-11-12] MEDS: amLODIPine BESYLATE 5 MG TABLET PO SCH (09:31)
[2018-11-12] MEDS: MAGNESIUM OXIDE 400 MG TABLET PO SCH (09:32)
[2018-11-12] MEDS: APIXABAN 2.5 MG TABLET. PO SCH (09:32)
[2018-11-12] MEDS: LEVOTHYROXINE 75 MCG TABLET PO SCH (09:32)
[2018-11-12] MEDS: CYANOCOBALAMIN (VITAMIN B-12) 1,000 MCG TABLET. PO SCH (09:32)
[2018-11-12] MEDS: ASCORBIC ACID 500 MG TABLET PO SCH (09:32)
[2018-11-12] MEDS: DOCUSATE SODIUM 100 MG CAPSULE. PO SCH (09:32)
[2018-11-12] MEDS: CHOLECALCIFEROL (VITAMIN D3) 1,000 UNIT TABLET PO SCH (09:33)
[2018-11-12] MEDS: LACTOBACILLUS RHAMNOSUS GG 1 CAPSULE. PO SCH ×2 (09:33→21:22)
[2018-11-12] MEDS: METOPROLOL TART IMMED RELEASE 25 MG TABLET. PO SCH (09:33)
[2018-11-12] MEDS: NYSTATIN TOPICAL POWDER 15GM BOTTLE. TP SCH ×2 (09:33→21:22)
[2018-11-12] MEDS: POLYETHYLENE GLYCOL 3350 17 GM PACKET. PO SCH (09:33)
[2018-11-12] MEDS: MULTIVITAMIN with MINERAL TABLET. PO SCH (09:34)
[2018-11-12 11:00] VITALS: BP 164/78
--- NOTE | 2018-11-12 12:54 | PDOC ---
PROGRESS NOTES Chief Complaint Chief Complaint Indwelling Suprapubic catheter-gets change every of the month Atrophic right kidney Exophytic left renal cyst Staghorn calculi-asymptomatic, no intervention per urology Obesity, BMI 35 Generalized weakness/SNU resident Possible history of UTI History of osteoarthritis-basically bedbound History of Present Illness History of Present Illness SHe is a long-term resident of [facility] She came from [facility] [place] for urology Multiple attempts to replace the indwelling suprapubic catheter but failed Plan for a cystogram Miller will need to be changed qmonthly in SNU So far no urine sample because we are waiting for the catheter to be changed but so far no plans of re-manipulating hence I have discussed with RN to get a urine sample now Patient claims allergies to Zyvox but is tolerating fine. She has multiple allergies including penicillin-she claims bad rash in her mouth and swelling Plan: get a urine sample now Continue IV Zyvox started by Dr. Jo I need a urine culture before sending this patient back on to SNU because of comp complicated UTI No intervention planned for the staghorn calculi, she is mostly asymptomatic No nausea today, advance to GI soft Discussed with RN Vitals Vitals Vital Signs Date Time Temp Pulse Resp B/P (MAP) Pulse Ox O2 Delivery O2 Flow Rate FiO2 11/12/18 11:00 98.3 78 18 164/78 (106) 95 Room Air 98.3 11/12/18 10:23 2.0 Physical Exam General: Alert, Oriented X3, Cooperative, No acute distress, Other (crit at bedside) Heart: Regular rate, Normal S1, Normal S2 Lungs: Clear Abdomen: Normal bowel sounds, Soft, No tenderness Extremities: No clubbing, No cyanosis, No edema Skin: No rashes, No breakdown, No significant lesion Labs LABS Laboratory Tests Test 11/12/18 05:50 White Blood Count 6.5 x10^3/uL (4.0-11.0) Red Blood Count 4.15 x10^6/uL (3.50-5.40) Hemoglobin 11.4 g/dL (12.0-15.5) Hematocrit 35.0 % (36.0-47.0) Mean Corpuscular Volume 84 fL (79-100) Mean Corpuscular Hemoglobin 27 pg (25-35) Mean Corpuscular Hemoglobin Concent 33 g/dL (31-37) Red Cell Distribution Width 14.1 % (11.5-14.5) Platelet Count 239 x10^3/uL (140-400) Neutrophils (%) (Auto) 64 % (31-73) Lymphocytes (%) (Auto) 25 % (24-48) Monocytes (%) (Auto) 7 % (0-9) Eosinophils (%) (Auto) 4 % (0-3) Basophils (%) (Auto) 0 % (0-3) Neutrophils # (Auto) 4.2 x10^3uL (1.8-7.7) Lymphocytes # (Auto) 1.6 x10^3/uL (1.0-4.8) Monocytes # (Auto) 0.5 x10^3/uL (0.0-1.1) Eosinophils # (Auto) 0.3 x10^3/uL (0.0-0.7) Basophils # (Auto) 0.0 x10^3/uL (0.0-0.2) Sodium Level 143 mmol/L (136-145) Potassium Level 3.6 mmol/L (3.5-5.1) Chloride Level 105 mmol/L (98-107) Carbon Dioxide Level 31 mmol/L (21-32) Anion Gap 7 (6-14) Blood Urea Nitrogen 10 mg/dL (7-20) Creatinine 0.8 mg/dL (0.6-1.0) Estimated GFR (Cockcroft-Gault) 68.8 Glucose Level 103 mg/dL (70-99) Calcium Level 8.9 mg/dL (8.5-10.1) Review of Systems Review of Systems A 14 point ROS was completed with the following noted as positive: Other systems reviewed and negative. \CONSTITUTIONAL: No fever or chills EYES: No recent changes SKIN: No rash or itching CARDIOVASCULAR: No chest pain, syncope, palpitations, or edema RESPIRATORY: No SOB or cough GASTROINTESTINAL: No nausea, vomiting or abdominal pain NEUROLOGICAL: No headaches or weakness ENDOCRINE: No cold or heat intolerance GENITOURINARY: No urgency or frequency of urination MUSCULOSKELETAL: No back pain or joint pain LYMPHATICS: No enlarged lymph nodes PSYCHIATRIC: No anxiety or depression Comment Review of Relevant I have reviewed the following items king (where applicable) has been applied. Labs Laboratory Tests Test 11/11/18 07:40 11/12/18 05:50 White Blood Count 6.6 x10^3/uL (4.0-11.0) 6.5 x10^3/uL (4.0-11.0) Red Blood Count 4.10 x10^6/uL (3.50-5.40) 4.15 x10^6/uL (3.50-5.40) Hemoglobin 11.2 g/dL (12.0-15.5) 11.4 g/dL (12.0-15.5) Hematocrit 34.4 % (36.0-47.0) 35.0 % (36.0-47.0) Mean Corpuscular Volume 84 fL (79-100) 84 fL (79-100) Mean Corpuscular Hemoglobin 27 pg (25-35) 27 pg (25-35) Mean Corpuscular Hemoglobin Concent 33 g/dL (31-37) 33 g/dL (31-37) Red Cell Distribution Width 14.0 % (11.5-14.5) 14.1 % (11.5-14.5) Platelet Count 227 x10^3/uL (140-400) 239 x10^3/uL (140-400) Neutrophils (%) (Auto) 71 % (31-73) 64 % (31-73) Lymphocytes (%) (Auto) 19 % (24-48) 25 % (24-48) Monocytes (%) (Auto) 6 % (0-9) 7 % (0-9) Eosinophils (%) (Auto) 4 % (0-3) 4 % (0-3) Basophils (%) (Auto) 0 % (0-3) 0 % (0-3) Neutrophils # (Auto) 4.6 x10^3uL (1.8-7.7) 4.2 x10^3uL (1.8-7.7) Lymphocytes # (Auto) 1.2 x10^3/uL (1.0-4.8) 1.6 x10^3/uL (1.0-4.8) Monocytes # (Auto) 0.4 x10^3/uL (0.0-1.1) 0.5 x10^3/uL (0.0-1.1) Eosinophils # (Auto) 0.3 x10^3/uL (0.0-0.7) 0.3 x10^3/uL (0.0-0.7) Basophils # (Auto) 0.0 x10^3/uL (0.0-0.2) 0.0 x10^3/uL (0.0-0.2) Sodium Level 143 mmol/L (136-145) 143 mmol/L (136-145) Potassium Level 3.7 mmol/L (3.5-5.1) 3.6 mmol/L (3.5-5.1) Chloride Level 105 mmol/L (98-107) 105 mmol/L (98-107) Carbon Dioxide Level 29 mmol/L (21-32) 31 mmol/L (21-32) Anion Gap 9 (6-14) 7 (6-14) Blood Urea Nitrogen 10 mg/dL (7-20) 10 mg/dL (7-20) Creatinine 0.8 mg/dL (0.6-1.0) 0.8 mg/dL (0.6-1.0) Estimated GFR (Cockcroft-Gault) 68.8 68.8 Glucose Level 103 mg/dL (70-99) 103 mg/dL (70-99) Calcium Level 8.8 mg/dL (8.5-10.1) 8.9 mg/dL (8.5-10.1) Laboratory Tests Test 11/12/18 05:50 White Blood Count 6.5 x10^3/uL (4.0-11.0) Red Blood Count 4.15 x10^6/uL (3.50-5.40) Hemoglobin 11.4 g/dL (12.0-15.5) Hematocrit 35.0 % (36.0-47.0) Mean Corpuscular Volume 84 fL (79-100) Mean Corpuscular Hemoglobin 27 pg (25-35) Mean Corpuscular Hemoglobin Concent 33 g/dL (31-37) Red Cell Distribution Width 14.1 % (11.5-14.5) Platelet Count 239 x10^3/uL (140-400) Neutrophils (%) (Auto) 64 % (31-73) Lymphocytes (%) (Auto) 25 % (24-48) Monocytes (%) (Auto) 7 % (0-9) Eosinophils (%) (Auto) 4 % (0-3) Basophils (%) (Auto) 0 % (0-3) Neutrophils # (Auto) 4.2 x10^3uL (1.8-7.7) Lymphocytes # (Auto) 1.6 x10^3/uL (1.0-4.8) Monocytes # (Auto) 0.5 x10^3/uL (0.0-1.1) Eosinophils # (Auto) 0.3 x10^3/uL (0.0-0.7) Basophils # (Auto) 0.0 x10^3/uL (0.0-0.2) Sodium Level 143 mmol/L (136-145) Potassium Level 3.6 mmol/L (3.5-5.1) Chloride Level 105 mmol/L (98-107) Carbon Dioxide Level 31 mmol/L (21-32) Anion Gap 7 (6-14) Blood Urea Nitrogen 10 mg/dL (7-20) Creatinine 0.8 mg/dL (0.6-1.0) Estimated GFR (Cockcroft-Gault) 68.8 Glucose Level 103 mg/dL (70-99) Calcium Level 8.9 mg/dL (8.5-10.1) Medications Current Medications Acetaminophen (Tylenol) 650 mg BID PO ; Start 11/10/18 at 12:30; Stop 11/10/18 at 22:06; Status DC Acetaminophen (Tylenol) 650 mg PRN Q8HRS PRN PO MILD PAIN Last administered on 11/11/18 21:00; Start 11/10/18 at 12:00 Amlodipine Besylate (Norvasc) 5 mg DAILY PO Last administered on 11/12/18 09: 31; Start 11/10/18 at 12:30 Apixaban (Eliquis) 2.5 mg BID PO Last administered on 11/12/18 09:32; Start at 12:30 Atorvastatin Calcium (Lipitor) 20 mg HS PO Last administered on 11/11/18at 20:57 ; Start 11/10/18 at 21:00 Docusate Sodium (Colace) 200 mg DAILY08 PO Last administered on 11/12/18 09:32 ; Start 11/10/18 at 12:30 Levothyroxine Sodium (Synthroid) 75 mcg DAILYAC PO Last administered on 09:32; Start 11/10/18 at 12:30 Magnesium Hydroxide (Milk Of Magnesia) 400 mg PRN DAILY PRN PO CONSTIPATION Last administered on 11/11/18 15:22; Start 11/10/18 at 12:00 Metoprolol Tartrate (Lopressor) 25 mg DAILY PO Last administered on 11/12/18 09:33; Start 11/10/18 at 12:30 Nystatin (Nystop) 1 bob BID TP Last administered on 11/12/18 09:33; Start at 12:30 Vitamin D (Vitamin D3) 1,000 unit DAILY PO Last administered on 11/12/18 09:33 ; Start 11/10/18 at 12:30 Cyanocobalamin (Vitamin B-12) 250 mcg DAILY PO Last administered on 11/12/18 09:32; Start 11/10/18 at 12:30 Famotidine (Pepcid) 40 mg DAILY PO Last administered on 11/12/18 09:31; Start 11/10/18 at 12:30 Loperamide HCl (Imodium) 2 mg PRN QID PRN PO DIARRHEA; Start 11/10/18 at 12:30 Magnesium Oxide (Magnesium Oxide) 400 mg DAILY08 PO Last administered on 09:32; Start 11/10/18 at 12:30 Multivitamins (Thera M Plus) 1 tab DAILY08 PO Last administered on 11/12/18 09 :34; Start 11/10/18 at 12:30 Ondansetron HCl (Zofran Odt) 4 mg PRN Q6HRS PRN PO NAUSEA/VOMITING Last administered on 11/12/18 09:22; Start 11/10/18 at 12:30 Polyethylene Glycol (miraLAX PACKET) 17 gm DAILY08 PO Last administered on 11/12 09:33; Start 11/10/18 at 12:30 Sodium Chloride (Saline Mist Nasal) 1 bob PRN Q1HR PRN NS NASAL CONGESTION; Start 11/10/18 at 12:30 Non-Formulary Medication (Ubidecarenone (Coenzyme Q10)) 100 mg DAILY08 PO ; Start 11/11/18 at 08:00; Status UNV Oxycodone/ Acetaminophen (Percocet 7.5/ 325) 1 tab PRN Q6HRS PRN PO MODERATE TO SEVERE PAIN Last administered on 11/12/18 09:23; Start 11/10/18 at 12:00 Linezolid/Dextrose 300 ml @ 300 mls/hr Q12HR IV Last administered on 09:35; Start 11/10/18 at 13:00 Lactobacillus Rhamnosus (Culturelle) 1 cap BID PO Last administered on 09:33; Start 11/10/18 at 12:30 Bisacodyl (Dulcolax Tab) 10 mg PRN Q12HRS PRN PO CONSTIPATION, 2nd CHOICE; Start 11/10/18 at 12:00 Fentanyl Citrate (Fentanyl 2ml Vial) 50 mcg PRN Q2HR PRN IV PAIN Last administered on 11/11/18 11:04; Start 11/10/18 at 22:15 Diphenhydramine HCl (Benadryl) 25 mg PRN QHS PRN PO INSOMNIA Last administered on 11/10/18 22:30; Start 11/10/18 at 22:15; Stop 11/11/18 at 14:28; Status DC Fentanyl Citrate (Fentanyl 2ml Vial) 50 mcg PRN Q2HR PRN IV PAIN; Start at 08:15 Ascorbic Acid (Vitamin C) 500 mg DAILY PO Last administered on 11/12/18 09:32 ; Start 11/11/18 at 12:00 Info (Anti-Coagulation Monitoring By Pharmacy) 1 each PRN DAILY PRN MC SEE COMMENTS Last administered on 11/11/18 14:07; Start 11/11/18 at 14:15 Diphenhydramine HCl (Benadryl) 25 mg PRN Q6HRS PRN PO ITCHING/ INSOMNIA; Start 11/11/18 at 14:30 Active Scripts Active Reported Saline Nasal Cushing (Sodium Chloride) 30 Ml Cushing 1 Cushing NS PRN Q1HR PRN Ondansetron Hcl 4 Mg Tablet 1 Tab PO PRN Q6HRS Nystatin 15 Gm Powder 15 Gm TP BID Metoprolol Tartrate 25 Mg Tablet 25 Mg PO DAILY Levothyroxine Sodium 75 Mcg Tablet 75 Mcg PO DAILYAC DURAGESIC 100mcg/hr (Fentanyl) 1 Each Patch.td72 1 Patch TD Q72H Famotidine 40 Mg Tablet 40 Mg PO DAILY Cranberry (Cranberry Extract) 425 Mg Capsule 850 Mg PO BID Rolaids Chewable Tablet (Calcium Carb/Magnesium Hydrox) 1 Each Tab.chew 1 Each PO PRN Q6HRS PRN Atorvastatin Calcium 20 Mg Tablet 20 Mg PO HS Eliquis (Apixaban) 2.5 Mg Tablet 2.5 Mg PO BID Amlodipine Besylate 5 Mg Tablet 5 Mg PO DAILY Pro-Stat Liquid (Amino Acids/Protein Hydrolys) 30 Ml Liquid 30 Ml PO DAILY Tylenol (Acetaminophen) 325 Mg Tablet 650 Mg PO PRN Q8HRS PRN Milk Of Magnesia (Magnesium Hydroxide) 400 Mg/5 Ml Oral.susp 400 Mg PO PRN DAILY PRN Loperamide (Loperamide Hcl) 2 Mg Capsule 2 Mg PO PRN QID PRN Bisacodyl 10 Mg Supp.rect 10 Mg RC PRN DAILY PRN Vitamin B-12 (Cyanocobalamin (Vitamin B-12)) 250 Mcg Tablet 250 Mcg PO DAILY Floranex Tablet (Acidophilus/Bulgaricus) 1 Each Tablet 1 Each PO BID Vitamin D (Cholecalciferol (Vitamin D3)) 1,000 Unit Capsule 1,000 Unit PO DAILY Miralax (Polyethylene Glycol 3350) 17 Gm Powd.pack 1 Pkt PO DAILY08 Multivitamins (Multivitamin) 1 Each Tablet 1 Each PO DAILY08 Magnesium Oxide 400 Mg Tablet 400 Mg PO DAILY08 Docusate Sodium 100 Mg Capsule 200 Mg PO DAILY08 Coenzyme Q10 (Ubidecarenone) 100 Mg Capsule 100 Mg PO DAILY08 Tylenol (Acetaminophen) 325 Mg Tablet 650 Mg PO BID Vitals/I & O Vital Sign - Last 24 Hours 11/11/18 11/11/18 11/11/18 11/11/18 15:00 16:41 19:00 20:00 Temp 97.9 98.0 97.9 98.0 Pulse 77 81 Resp 19 16 B/P (MAP) 180/89 (119) 156/97 (116) Pulse Ox 95 95 O2 Delivery Room Air Room Air Room Air Room Air 11/11/18 11/12/18 11/12/18 11/12/18 23:00 00:20 03:00 07:00 Temp 97.5 97.5 98.1 97.5 97.5 98.1 Pulse 89 75 87 Resp 16 16 19 B/P (MAP) 132/88 (103) 156/80 (105) 150/88 (108) Pulse Ox 94 92 100 O2 Delivery Room Air Room Air Room Air Room Air 11/12/18 11/12/18 11/12/18 11/12/18 09:23 09:31 09:33 10:23 Pulse 87 87 B/P (MAP) 150/88 150/88 Pulse Ox 100 100 O2 Delivery Room Air Room Air O2 Flow Rate 2.0 2.0 11/12/18 11:00 Temp 98.3 98.3 Pulse 78 Resp 18 B/P (MAP) 164/78 (106) Pulse Ox 95 O2 Delivery Room Air Intake and Output 11/11/18 11/11/18 11/12/18 15:00 23:00 07:00 Intake Total 300 ml 60 ml 40 ml Output Total 200 ml 500 ml 150 ml Balance 100 ml -440 ml -110 ml DESTINY GRANADO MD Nov 12, 2018 12:54
[2018-11-12 15:00] VITALS: BP 158/88
[2018-11-12] MEDS: ACETAMINOPHEN 325 MG TABLET. PO PRN (15:32)
[2018-11-12] MEDS: MAGNESIUM HYDROXIDE 2,400 MG/30 ML ORAL.SUSP. PO PRN (15:38)
[2018-11-12] MEDS ORDERED: predniSONE 20 MG TABLET PO ONE ×2 (18:00→23:00)
[2018-11-12] MEDS: PIPERACILLIN/TAZOBACTAM 3.375 GM in IV NORMAL SALINE 50ML 50 ML IV SCH ×2 (18:09→23:25)
[2018-11-12 19:00] VITALS: BP 153/74
[2018-11-12] MEDS: ATORVASTATIN CALCIUM 20 MG TABLET PO SCH (21:22)
[2018-11-12] MEDS: APIXABAN 5 MG TABLET. PO SCH (21:22)
[2018-11-12 22:41] LABS: BILIRUBIN,URINE NEGATIVE (NEG); CLARITY,URINE CLEAR; COLOR,URINE YELLOW; NITRITE,URINE POSITIVE (NEG); PH,URINE 7.5; PROTEIN,URINE NEGATIVE (NEG-TRACE); UROBILINOGEN,URINE 0.2 mg/dL (0.2 mg/dL)
[2018-11-12 22:48] LABS: BACTERIA,URINE MANY /HPF (0-FEW); SQUAMOUS EPITHELIAL CELL,UR FEW /LPF
[2018-11-12 23:00] VITALS: BP 158/64
[2018-11-13 02:58] VITALS: BP 146/64
[2018-11-13] MEDS: PIPERACILLIN/TAZOBACTAM 3.375 GM in IV NORMAL SALINE 50ML 50 ML IV SCH ×3 (05:26→18:04)
[2018-11-13] MEDS ORDERED: ALTEPLASE 1MG SYRINGE. INT CAT ONE (05:30)
[2018-11-13] MEDS ORDERED: predniSONE 20 MG TABLET PO ONE (06:00)
[2018-11-13] MEDS: oxyCODONE/APAP 7.5/325 1 TAB TABLET PO PRN (06:17)
[2018-11-13] MEDS: LEVOTHYROXINE 75 MCG TABLET PO SCH (06:18)
[2018-11-13 07:00] VITALS: BP 157/90
--- NOTE | 2018-11-13 08:35 | PDOC ---
SUBJECTIVE Subjective Patient comfortable. OBJECTIVE Objective Physical Exam: General appearance: Alert and Oriented Head: Normocephalic, without obvious abnormality Eyes: conjunctivae/corneas clear. PERRL, EOM's intact. Fundi benign Back: negative, no CVA pain Lungs: Regular respirations, non labored breathing Abdomen: soft, obese non-tender. Bowel sounds normal. No masses, no organomegaly. Old SP catheter removed with some moderate trouble shooting on part of [employer] Js. Pt tolerated well, no EBL noted during proceedure. After old SP tubing removed, the area was prepped in the normal fashion and a brand new 16 FR silicone catheter was inserted into SP site; urine return noted. UA was then collected into sterile container and sent off for testing. Pelvic: deferred Vital Signs Vital Signs Date Time Temp Pulse Resp B/P (MAP) Pulse Ox O2 Delivery O2 Flow Rate FiO2 11/13/18 07:00 98.2 95 18 157/90 (112) 96 Room Air 98.2 11/13/18 06:17 20 94 Room Air 11/13/18 02:58 98.1 74 18 146/64 (91) 94 Room Air 2.0 98.1 11/12/18 23:00 98.3 100 20 158/64 (95) 91 Room Air 2.0 98.3 11/12/18 22:23 18 94 Nasal Cannula 2.0 11/12/18 21:23 20 98 Room Air 2.0 11/12/18 20:00 Room Air 11/12/18 19:00 98.2 77 18 153/74 (100) 98 Room Air 98.2 11/12/18 15:00 98.3 72 17 158/88 (111) 94 Room Air 98.3 11/12/18 11:00 98.3 78 18 164/78 (106) 95 Room Air 98.3 11/12/18 09:33 87 150/88 11/12/18 09:31 87 150/88 11/12/18 09:23 100 Room Air 2.0 I & O Intake and Output 11/13/18 07:00 Output Total 1000 ml Balance -1000 ml Output Urine Total 1000 ml PHYSICAL EXAM Physical Exam Physical Exam: General appearance: Alert and Oriented Head: Normocephalic, without obvious abnormality Eyes: conjunctivae/corneas clear. PERRL, EOM's intact. Fundi benign Back: negative, no CVA pain Lungs: Regular respirations, non labored breathing Abdomen: soft, obese non-tender. Bowel sounds normal. No masses, no organomegaly. Old SP catheter removed with some moderate trouble shooting on part of [employer] Js. Pt tolerated well, no EBL noted during proceedure. After old SP tubing removed, the area was prepped in the normal fashion and a brand new 16 FR silicone catheter was inserted into SP site; urine return noted. UA was then collected into sterile container and sent off for testing. Pelvic: deferred ASSESSMENT/PLAN Assessment/Plan SP tube removed with some trouble shooting and a new 16 Fr silicone Miller inserted with yellow urine return noted. Urine had some small white sediment in it. UA collected after SP tube insertion by [employer] Js. Proceed for cystogram this afternoon as patient reports history of SP Miller getting stuck "frequently" during changes. A follow up appointment has been arranged for patient to [place] [facility] [place]. 12/10/18 at 1020 am at [facility] location. Appointment card and new patient paperwork secured to patient chart. Will check on patient tomorrow. Problems: (1) Miller catheter in place COMMENT Lab Laboratory Tests Test 11/12/18 22:15 Urine Collection Type Unknown Urine Color Yellow Urine Clarity Clear Urine pH 7.5 Urine Specific [place] 1.010 Urine Protein Negative mg/dL (NEG-TRACE) Urine Glucose (UA) Negative mg/dL (NEG) Urine Ketones (Stick) Negative mg/dL (NEG) Urine Blood Moderate (NEG) Urine Nitrite Positive (NEG) Urine Bilirubin Negative (NEG) Urine Urobilinogen Dipstick 0.2 mg/dL (0.2 mg/dL) Urine Leukocyte Esterase Large (NEG) Urine RBC 1-2 /HPF (0-2) Urine WBC 5-10 /HPF (0-4) Urine Squamous Epithelial Cells Few /LPF Urine Bacteria Many /HPF (0-FEW) Urine Mucus Slight /LPF BEN CHINO APRN Nov 13, 2018 08:35
[2018-11-13] MEDS: LACTOBACILLUS RHAMNOSUS GG 1 CAPSULE. PO SCH ×2 (08:50→20:23)
[2018-11-13] MEDS: ASCORBIC ACID 500 MG TABLET PO SCH (08:51)
[2018-11-13] MEDS: DOCUSATE SODIUM 100 MG CAPSULE. PO SCH (08:51)
[2018-11-13] MEDS: MAGNESIUM OXIDE 400 MG TABLET PO SCH (08:51)
[2018-11-13] MEDS: FAMOTIDINE 20 MG TABLET. PO SCH (08:51)
[2018-11-13] MEDS: MULTIVITAMIN with MINERAL TABLET. PO SCH (08:51)
[2018-11-13] MEDS: METOPROLOL TART IMMED RELEASE 25 MG TABLET. PO SCH (08:51)
[2018-11-13] MEDS: CHOLECALCIFEROL (VITAMIN D3) 1,000 UNIT TABLET PO SCH (08:52)
[2018-11-13] MEDS: APIXABAN 5 MG TABLET. PO SCH ×2 (08:52→20:23)
[2018-11-13] MEDS: amLODIPine BESYLATE 5 MG TABLET PO SCH (08:52)
[2018-11-13] MEDS: NYSTATIN TOPICAL POWDER 15GM BOTTLE. TP SCH ×2 (08:53→20:30)
[2018-11-13] MEDS: POLYETHYLENE GLYCOL 3350 17 GM PACKET. PO SCH (08:53)
[2018-11-13] MEDS: CYANOCOBALAMIN (VITAMIN B-12) 1,000 MCG TABLET. PO SCH (09:00)
[2018-11-13 11:00] VITALS: BP 155/81
--- NOTE | 2018-11-13 11:36 | PDOC ---
PROGRESS NOTES Chief Complaint Chief Complaint Indwelling Suprapubic catheter-gets change every of the month GNR UTI, complicated Atrophic right kidney Exophytic left renal cyst Staghorn calculi-asymptomatic, no intervention per urology Obesity, BMI 35 Generalized weakness/[facility] resident History of osteoarthritis-basically bedbound History of Present Illness History of Present Illness SHe is a long-term resident of [facility] She came from [facility] for need for urology FOr cystogram ordered by urology She has no complaints aside from the fact that she cannot walk which is her baseline in [facility]U Multiple attempts to replace the indwelling suprapubic catheter but failed Miller will need to be changed qmonthly in SNU GNR UTI I did add Zosyn on top of Zyvox for coverage Plan: Zosyn to add to Zyvox I will await urine culture identification speciation sensitivities Cystogram today per urology Cannot DC back to SNU without urine culture sensitivities-complicated UTI, indwelling superpubic catheter Vitals Vitals Vital Signs Date Time Temp Pulse Resp B/P (MAP) Pulse Ox O2 Delivery O2 Flow Rate FiO2 11/13/18 09:21 Room Air 11/13/18 08:52 95 157/90 11/13/18 07:00 98.2 18 96 98.2 11/13/18 02:58 2.0 Physical Exam General: Alert, Oriented X3, Cooperative, No acute distress, Other (crit at bedside) Heart: Regular rate, Normal S1, Normal S2 Lungs: Clear Abdomen: Normal bowel sounds, Soft, No tenderness Extremities: No clubbing, No cyanosis, No edema Skin: No rashes, No breakdown, No significant lesion Labs LABS Laboratory Tests Test 11/12/18 22:15 11/13/18 06:50 Urine Collection Type Unknown Urine Color Yellow Urine Clarity Clear Urine pH 7.5 Urine Specific [place] 1.010 Urine Protein Negative mg/dL (NEG-TRACE) Urine Glucose (UA) Negative mg/dL (NEG) Urine Ketones (Stick) Negative mg/dL (NEG) Urine Blood Moderate (NEG) Urine Nitrite Positive (NEG) Urine Bilirubin Negative (NEG) Urine Urobilinogen Dipstick 0.2 mg/dL (0.2 mg/dL) Urine Leukocyte Esterase Large (NEG) Urine RBC 1-2 /HPF (0-2) Urine WBC 5-10 /HPF (0-4) Urine Squamous Epithelial Cells Few /LPF Urine Bacteria Many /HPF (0-FEW) Urine Mucus Slight /LPF Erythrocyte Sedimentation Rate 53 (0-25) Review of Systems Review of Systems A 14 point ROS was completed with the following noted as positive: Other systems reviewed and negative. \CONSTITUTIONAL: No fever or chills EYES: No recent changes SKIN: No rash or itching CARDIOVASCULAR: No chest pain, syncope, palpitations, or edema RESPIRATORY: No SOB or cough GASTROINTESTINAL: No nausea, vomiting or abdominal pain NEUROLOGICAL: No headaches or weakness ENDOCRINE: No cold or heat intolerance GENITOURINARY: No urgency or frequency of urination MUSCULOSKELETAL: No back pain or joint pain LYMPHATICS: No enlarged lymph nodes PSYCHIATRIC: No anxiety or depression Comment Review of Relevant I have reviewed the following items king (where applicable) has been applied. Labs Laboratory Tests Test 11/12/18 05:50 11/12/18 22:15 11/13/18 06:50 White Blood Count 6.5 x10^3/uL (4.0-11.0) Red Blood Count 4.15 x10^6/uL (3.50-5.40) Hemoglobin 11.4 g/dL (12.0-15.5) Hematocrit 35.0 % (36.0-47.0) Mean Corpuscular Volume 84 fL (79-100) Mean Corpuscular Hemoglobin 27 pg (25-35) Mean Corpuscular Hemoglobin Concent 33 g/dL (31-37) Red Cell Distribution Width 14.1 % (11.5-14.5) Platelet Count 239 x10^3/uL (140-400) Neutrophils (%) (Auto) 64 % (31-73) Lymphocytes (%) (Auto) 25 % (24-48) Monocytes (%) (Auto) 7 % (0-9) Eosinophils (%) (Auto) 4 % (0-3) Basophils (%) (Auto) 0 % (0-3) Neutrophils # (Auto) 4.2 x10^3uL (1.8-7.7) Lymphocytes # (Auto) 1.6 x10^3/uL (1.0-4.8) Monocytes # (Auto) 0.5 x10^3/uL (0.0-1.1) Eosinophils # (Auto) 0.3 x10^3/uL (0.0-0.7) Basophils # (Auto) 0.0 x10^3/uL (0.0-0.2) Sodium Level 143 mmol/L (136-145) Potassium Level 3.6 mmol/L (3.5-5.1) Chloride Level 105 mmol/L (98-107) Carbon Dioxide Level 31 mmol/L (21-32) Anion Gap 7 (6-14) Blood Urea Nitrogen 10 mg/dL (7-20) Creatinine 0.8 mg/dL (0.6-1.0) Estimated GFR (Cockcroft-Gault) 68.8 Glucose Level 103 mg/dL (70-99) Calcium Level 8.9 mg/dL (8.5-10.1) Urine Collection Type Unknown Urine Color Yellow Urine Clarity Clear Urine pH 7.5 Urine Specific [place] 1.010 Urine Protein Negative mg/dL (NEG-TRACE) Urine Glucose (UA) Negative mg/dL (NEG) Urine Ketones (Stick) Negative mg/dL (NEG) Urine Blood Moderate (NEG) Urine Nitrite Positive (NEG) Urine Bilirubin Negative (NEG) Urine Urobilinogen Dipstick 0.2 mg/dL (0.2 mg/dL) Urine Leukocyte Esterase Large (NEG) Urine RBC 1-2 /HPF (0-2) Urine WBC 5-10 /HPF (0-4) Urine Squamous Epithelial Cells Few /LPF Urine Bacteria Many /HPF (0-FEW) Urine Mucus Slight /LPF Erythrocyte Sedimentation Rate 53 (0-25) Laboratory Tests Test 11/12/18 22:15 11/13/18 06:50 Urine Collection Type Unknown Urine Color Yellow Urine Clarity Clear Urine pH 7.5 Urine Specific [place] 1.010 Urine Protein Negative mg/dL (NEG-TRACE) Urine Glucose (UA) Negative mg/dL (NEG) Urine Ketones (Stick) Negative mg/dL (NEG) Urine Blood Moderate (NEG) Urine Nitrite Positive (NEG) Urine Bilirubin Negative (NEG) Urine Urobilinogen Dipstick 0.2 mg/dL (0.2 mg/dL) Urine Leukocyte Esterase Large (NEG) Urine RBC 1-2 /HPF (0-2) Urine WBC 5-10 /HPF (0-4) Urine Squamous Epithelial Cells Few /LPF Urine Bacteria Many /HPF (0-FEW) Urine Mucus Slight /LPF Erythrocyte Sedimentation Rate 53 (0-25) Microbiology 11/10/18 Urine Culture - Preliminary, Resulted 11/10/18 Urine Culture Result 1 (DARLENE) - Preliminary, Resulted Medications Current Medications Acetaminophen (Tylenol) 650 mg BID PO ; Start 11/10/18 at 12:30; Stop 11/10/18 at 22:06; Status DC Acetaminophen (Tylenol) 650 mg PRN Q8HRS PRN PO MILD PAIN Last administered on 11/12/18 15:32; Start 11/10/18 at 12:00 Amlodipine Besylate (Norvasc) 5 mg DAILY PO Last administered on 11/13/18 08: 52; Start 11/10/18 at 12:30 Apixaban (Eliquis) 2.5 mg BID PO Last administered on 11/12/18 09:32; Start at 12:30; Stop 11/12/18 at 13:23; Status DC Atorvastatin Calcium (Lipitor) 20 mg HS PO Last administered on 11/12/18 21:22 ; Start 11/10/18 at 21:00 Docusate Sodium (Colace) 200 mg DAILY08 PO Last administered on 11/13/18 08:51 ; Start 11/10/18 at 12:30 Levothyroxine Sodium (Synthroid) 75 mcg DAILYAC PO Last administered on 06:18; Start 11/10/18 at 12:30 Magnesium Hydroxide (Milk Of Magnesia) 400 mg PRN DAILY PRN PO CONSTIPATION Last administered on 11/12/18 15:38; Start 11/10/18 at 12:00 Metoprolol Tartrate (Lopressor) 25 mg DAILY PO Last administered on 11/13/18 08:51; Start 11/10/18 at 12:30 Nystatin (Nystop) 1 bob BID TP Last administered on 11/13/18 08:53; Start at 12:30 Vitamin D (Vitamin D3) 1,000 unit DAILY PO Last administered on 11/13/18 08:52 ; Start 11/10/18 at 12:30 Cyanocobalamin (Vitamin B-12) 250 mcg DAILY PO Last administered on 11/13/18 09:00; Start 11/10/18 at 12:30 Famotidine (Pepcid) 40 mg DAILY PO Last administered on 11/13/18 08:51; Start 11/10/18 at 12:30 Loperamide HCl (Imodium) 2 mg PRN QID PRN PO DIARRHEA; Start 11/10/18 at 12:30 Magnesium Oxide (Magnesium Oxide) 400 mg DAILY08 PO Last administered on 08:51; Start 11/10/18 at 12:30 Multivitamins (Thera M Plus) 1 tab DAILY08 PO Last administered on 11/13/18 08 :51; Start 11/10/18 at 12:30 Ondansetron HCl (Zofran Odt) 4 mg PRN Q6HRS PRN PO NAUSEA/VOMITING Last administered on 11/12/18 09:22; Start 11/10/18 at 12:30 Polyethylene Glycol (miraLAX PACKET) 17 gm DAILY08 PO Last administered on 11/13 08:53; Start 11/10/18 at 12:30 Sodium Chloride (Saline Mist Nasal) 1 bob PRN Q1HR PRN NS NASAL CONGESTION; Start 11/10/18 at 12:30 Non-Formulary Medication (Ubidecarenone (Coenzyme Q10)) 100 mg DAILY08 PO ; Start 11/11/18 at 08:00; Status UNV Oxycodone/ Acetaminophen (Percocet 7.5/ 325) 1 tab PRN Q6HRS PRN PO MODERATE TO SEVERE PAIN Last administered on 11/13/18 06:17; Start 11/10/18 at 12:00 Linezolid/Dextrose 300 ml @ 300 mls/hr Q12HR IV Last administered on 08:53; Start 11/10/18 at 13:00 Lactobacillus Rhamnosus (Culturelle) 1 cap BID PO Last administered on 08:50; Start 11/10/18 at 12:30 Bisacodyl (Dulcolax Tab) 10 mg PRN Q12HRS PRN PO CONSTIPATION, 2nd CHOICE; Start 11/10/18 at 12:00 Fentanyl Citrate (Fentanyl 2ml Vial) 50 mcg PRN Q2HR PRN IV PAIN Last administered on 11/11/18 11:04; Start 11/10/18 at 22:15; Stop 11/12/18 at 13:14 ; Status DC Diphenhydramine HCl (Benadryl) 25 mg PRN QHS PRN PO INSOMNIA Last administered on 11/10/18at 22:30; Start 11/10/18 at 22:15; Stop 11/11/18 at 14:28; Status DC Fentanyl Citrate (Fentanyl 2ml Vial) 50 mcg PRN Q2HR PRN IV PAIN; Start at 08:15 Ascorbic Acid (Vitamin C) 500 mg DAILY PO Last administered on 11/13/18at 08:51 ; Start 11/11/18 at 12:00 Info (Anti-Coagulation Monitoring By Pharmacy) 1 each PRN DAILY PRN MC SEE COMMENTS Last administered on 11/11/18at 14:07; Start 11/11/18 at 14:15 Diphenhydramine HCl (Benadryl) 25 mg PRN Q6HRS PRN PO ITCHING/ INSOMNIA; Start 11/11/18 at 14:30 Apixaban (Eliquis) 5 mg BID PO Last administered on 11/13/18at 08:52; Start at 21:00 Piperacillin Sod/ Tazobactam Sod 3.375 gm/Sodium Chloride 50 ml @ 100 mls/hr Q6HRS IV Last administered on 11/13/18at 05:26; Start 11/12/18 at 17:00 Prednisone (Prednisone) 20 mg 1X ONCE PO Last administered on 11/12/18at 18:09 ; Start 11/12/18 at 18:00; Stop 11/12/18 at 18:01; Status DC Prednisone (Prednisone) 20 mg 1X ONCE PO Last administered on 11/12/18at 23:19 ; Start 11/12/18 at 23:00; Stop 11/12/18 at 23:01; Status DC Prednisone (Prednisone) 20 mg 1X ONCE PO Last administered on 11/13/18at 06:16 ; Start 11/13/18 at 06:00; Stop 11/13/18 at 06:01; Status DC Diphenhydramine HCl (Benadryl) 50 mg PRN Q6HRS PRN PO ITCHING; Start 11/13/18 at 12:01 Alteplase, Recombinant (Cathflo For Central Catheter Clearance) 1 mg 1X ONCE INT CAT Last administered on 11/13/18at 06:06; Start 3/28/19 at 05:30; Stop at 05:31; Status DC Active Scripts Active Reported Saline Nasal [place] (Sodium Chloride) 30 Ml [place] 1 [place] NS PRN Q1HR PRN Ondansetron Hcl 4 Mg Tablet 1 Tab PO PRN Q6HRS Nystatin 15 Gm Powder 15 Gm TP BID Metoprolol Tartrate 25 Mg Tablet 25 Mg PO DAILY Levothyroxine Sodium 75 Mcg Tablet 75 Mcg PO DAILYAC DURAGESIC 100mcg/hr (Fentanyl) 1 Each Patch.td72 1 Patch TD Q72H Famotidine 40 Mg Tablet 40 Mg PO DAILY Cranberry (Cranberry Extract) 425 Mg Capsule 850 Mg PO BID Rolaids Chewable Tablet (Calcium Carb/Magnesium Hydrox) 1 Each Tab.chew 1 Each PO PRN Q6HRS PRN Atorvastatin Calcium 20 Mg Tablet 20 Mg PO HS Eliquis (Apixaban) 2.5 Mg Tablet 2.5 Mg PO BID Amlodipine Besylate 5 Mg Tablet 5 Mg PO DAILY Pro-Stat Liquid (Amino Acids/Protein Hydrolys) 30 Ml Liquid 30 Ml PO DAILY Tylenol (Acetaminophen) 325 Mg Tablet 650 Mg PO PRN Q8HRS PRN Milk Of Magnesia (Magnesium Hydroxide) 400 Mg/5 Ml Oral.susp 400 Mg PO PRN DAILY PRN Loperamide (Loperamide Hcl) 2 Mg Capsule 2 Mg PO PRN QID PRN Bisacodyl 10 Mg Supp.rect 10 Mg RC PRN DAILY PRN Vitamin B-12 (Cyanocobalamin (Vitamin B-12)) 250 Mcg Tablet 250 Mcg PO DAILY Floranex Tablet (Acidophilus/Bulgaricus) 1 Each Tablet 1 Each PO BID Vitamin D (Cholecalciferol (Vitamin D3)) 1,000 Unit Capsule 1,000 Unit PO DAILY Miralax (Polyethylene Glycol 3350) 17 Gm Powd.pack 1 Pkt PO DAILY08 Multivitamins (Multivitamin) 1 Each Tablet 1 Each PO DAILY08 Magnesium Oxide 400 Mg Tablet 400 Mg PO DAILY08 Docusate Sodium 100 Mg Capsule 200 Mg PO DAILY08 Coenzyme Q10 (Ubidecarenone) 100 Mg Capsule 100 Mg PO DAILY08 Tylenol (Acetaminophen) 325 Mg Tablet 650 Mg PO BID Vitals/I & O Vital Sign - Last 24 Hours 11/12/18 11/12/18 11/12/18 11/12/18 15:00 19:00 20:00 21:23 Temp 98.3 98.2 98.3 98.2 Pulse 72 77 Resp 17 18 20 B/P (MAP) 158/88 (111) 153/74 (100) Pulse Ox 94 98 98 O2 Delivery Room Air Room Air Room Air Room Air O2 Flow Rate 2.0 11/12/18 11/12/18 11/13/18 11/13/18 22:23 23:00 02:58 06:17 Temp 98.3 98.1 98.3 98.1 Pulse 100 74 Resp 18 20 18 20 B/P (MAP) 158/64 (95) 146/64 (91) Pulse Ox 94 91 94 94 O2 Delivery Room Air Room Air Room Air O2 Flow Rate 2.0 2.0 2.0 11/13/18 11/13/18 11/13/18 11/13/18 07:00 08:00 08:51 08:52 Temp 98.2 98.2 Pulse 95 95 95 Resp 18 B/P (MAP) 157/90 (112) 157/90 157/90 Pulse Ox 96 O2 Delivery Room Air Room Air 11/13/18 09:21 O2 Delivery Room Air Intake and Output 11/12/18 11/12/18 11/13/18 15:00 23:00 07:00 Output Total 400 ml 600 ml Balance -400 ml -600 ml DESTINY GRANADO MD Nov 13, 2018 11:36
[2018-11-13] MEDS ORDERED: diphenhydrAMINE HCL 25 MG CAPSULE PO PRN (12:01)
--- NOTE | 2018-11-13 12:51 | NUR ---
SW following pt. SW faxed updated clinicals to [facility]. Will continue to follow.
[2018-11-13] MEDS ORDERED: IOHEXOL 300 MG/ML 100ML VIAL. IJ ONE (14:30)
[2018-11-13] MEDS ORDERED: CONTRAST GIVEN. MC PRN (14:45)
[2018-11-13 15:00] VITALS: BP 171/90
--- NOTE | 2018-11-13 15:26 | RAD ---
Cystogram, 11/13/2018: History: Check catheter placement Nonionic contrast was injected into the patient's suprapubic catheter under fluoroscopic observation. 2.0 minutes of fluoroscopy time was utilized. 12 static and dynamic fluoroscopic sequences were recorded. The suprapubic catheter extends into the anterior aspect of the bladder. The bladder pino are mildly trabeculated with several small diverticula noted. After injecting approximately 60 cc of nonionic contrast into the bladder, there was extension of contrast from the bladder into the urethra with spillage onto the perineum. No extravasation of contrast from the bladder into the pelvis was identified. A postdrainage view demonstrated only partial bladder emptying. IMPRESSION: 1. 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 2. Bladder incontinence. 3. The suprapubic catheter is in satisfactory position in the anterior aspect of the bladder.
[2018-11-13 15:34] LABS: BILIRUBIN,URINE NEGATIVE (NEG); CLARITY,URINE CLEAR; COLOR,URINE YELLOW; NITRITE,URINE NEGATIVE (NEG); PH,URINE 6.5; PROTEIN,URINE 100 mg/dL (NEG-TRACE); UROBILINOGEN,URINE 0.2 mg/dL (0.2 mg/dL)
[2018-11-13 15:57] LABS: BACTERIA,URINE FEW /HPF (0-FEW); SQUAMOUS EPITHELIAL CELL,UR FEW /LPF
[2018-11-13] MEDS: ANTI-COAG MONITOR BY PHARMACY. MC PRN (16:10)
[2018-11-13 19:00] VITALS: BP 158/82
[2018-11-13] MEDS: ATORVASTATIN CALCIUM 20 MG TABLET PO SCH (20:23)
[2018-11-13] MEDS: ACETAMINOPHEN 325 MG TABLET. PO PRN (22:22)
[2018-11-13 23:00] VITALS: BP 145/74
[2018-11-14] MEDS: PIPERACILLIN/TAZOBACTAM 3.375 GM in IV NORMAL SALINE 50ML 50 ML IV SCH ×4 (00:06→18:19)
[2018-11-14 03:00] VITALS: BP 137/78
[2018-11-14] MEDS: ACETAMINOPHEN 325 MG TABLET. PO PRN ×2 (06:49→20:54)
[2018-11-14 07:00] VITALS: BP 163/73
[2018-11-14] MEDS: POLYETHYLENE GLYCOL 3350 17 GM PACKET. PO SCH (08:00)
[2018-11-14] MEDS: amLODIPine BESYLATE 5 MG TABLET PO SCH ×2 (08:04→09:21)
[2018-11-14] MEDS: LEVOTHYROXINE 75 MCG TABLET PO SCH (08:04)
[2018-11-14] MEDS: CYANOCOBALAMIN (VITAMIN B-12) 1,000 MCG TABLET. PO SCH (08:05)
[2018-11-14] MEDS: APIXABAN 5 MG TABLET. PO SCH ×2 (08:05→20:21)
[2018-11-14] MEDS: LACTOBACILLUS RHAMNOSUS GG 1 CAPSULE. PO SCH ×2 (08:05→20:21)
[2018-11-14] MEDS: ASCORBIC ACID 500 MG TABLET PO SCH (08:05)
[2018-11-14] MEDS: DOCUSATE SODIUM 100 MG CAPSULE. PO SCH (08:05)
[2018-11-14] MEDS: MULTIVITAMIN with MINERAL TABLET. PO SCH (08:05)
[2018-11-14] MEDS: CHOLECALCIFEROL (VITAMIN D3) 1,000 UNIT TABLET PO SCH (08:05)
[2018-11-14] MEDS: MAGNESIUM OXIDE 400 MG TABLET PO SCH (08:05)
[2018-11-14] MEDS: METOPROLOL TART IMMED RELEASE 25 MG TABLET. PO SCH (08:06)
[2018-11-14] MEDS: NYSTATIN TOPICAL POWDER 15GM BOTTLE. TP SCH ×2 (08:11→20:22)
[2018-11-14] MEDS: FAMOTIDINE 20 MG TABLET. PO SCH (08:11)
[2018-11-14] MEDS ORDERED: cloNIDine HCL 0.1 MG TABLET PO PRN (09:15)
--- NOTE | 2018-11-14 10:35 | PDOC ---
BEN CHINO OLIVE BRINE TESTER 11/14/18 1035: SUBJECTIVE Subjective Doing ok today, no complaints. OBJECTIVE Objective Physical Exam: General appearance: Alert and Oriented Head: Normocephalic, without obvious abnormality Eyes: conjunctivae/corneas clear. PERRL, EOM's intact. Fundi benign Lungs: Regular respirations, non labored breathing Abdomen: soft, non-tender, obese. SP tube in place draining clear yellow urine. Device in good working order. Vital Signs Vital Signs Date Time Temp Pulse Resp B/P (MAP) Pulse Ox O2 Delivery O2 Flow Rate FiO2 11/14/18 10:12 Room Air 2.0 11/14/18 09:21 79 163/73 11/14/18 08:06 79 163/73 11/14/18 08:04 79 163/73 11/14/18 08:00 Room Air 11/14/18 07:00 98.2 79 16 163/73 (103) 94 Room Air 98.2 11/14/18 03:00 98.0 83 17 137/78 (97) 94 Room Air 98.0 11/13/18 23:00 98.0 80 17 145/74 (97) 94 Room Air 98.0 11/13/18 20:00 Room Air 11/13/18 19:00 98.4 88 17 158/82 (107) 93 Room Air 98.4 11/13/18 15:00 98.4 88 17 171/90 (117) 96 Room Air 98.4 11/13/18 11:00 98.1 71 17 155/81 (105) 96 Room Air 98.1 I & O Intake and Output 11/14/18 07:00 Intake Total 0 ml Output Total 1950 ml Balance -1950 ml Intake Oral 0 ml Output Urine Total 1950 ml PHYSICAL EXAM Physical Exam Physical Exam: General appearance: Alert and Oriented Head: Normocephalic, without obvious abnormality Eyes: conjunctivae/corneas clear. PERRL, EOM's intact. Fundi benign Lungs: Regular respirations, non labored breathing Abdomen: soft, non-tender, obese. SP tube in place draining clear yellow urine. Device in good working order. ASSESSMENT/PLAN Assessment/Plan Cystogram confirms SP tubing in the right place. Nursing to continue to maintain. She will discharge with this device in place A follow up appointment has been secured for her with Dr. Alatorre of [facility] on 12/10 at 1020 am for SP tubing change. Appointment card and new patient paperwork is secured to the front of the chart. Will follow peripherally over the weekend, but please call with concerns over the weekend. COMMENT Lab Laboratory Tests Test 11/13/18 15:00 Urine Collection Type U cath Urine Color Yellow Urine Clarity Clear Urine pH 6.5 Urine Specific [place] 1.020 Urine Protein 100 mg/dL (NEG-TRACE) Urine Glucose (UA) Negative mg/dL (NEG) Urine Ketones (Stick) Negative mg/dL (NEG) Urine Blood Large (NEG) Urine Nitrite Negative (NEG) Urine Bilirubin Negative (NEG) Urine Urobilinogen Dipstick 0.2 mg/dL (0.2 mg/dL) Urine Leukocyte Esterase Large (NEG) Urine RBC 6-10 /HPF (0-2) Urine WBC 11-20 /HPF (0-4) Urine Squamous Epithelial Cells Few /LPF Urine Bacteria Few /HPF (0-FEW) Urine Mucus Slight /LPF Imaging IMPRESSION: 1. 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 2. Bladder incontinence. 3. The suprapubic catheter is in satisfactory position in the anterior aspect of the bladder. XENIA WALSH MD 11/14/18 2213: ASSESSMENT/PLAN Assessment/Plan no acute events or issues. will sign off. BEN CHINO APRN Nov 14, 2018 10:35 XENIA WALSH MD Nov 14, 2018 22:13
[2018-11-14 11:00] VITALS: BP 173/87
--- NOTE | 2018-11-14 12:09 | PDOC ---
PROGRESS NOTES Chief Complaint Chief Complaint Indwelling Suprapubic catheter-gets change every of the month GNR UTI, complicated Atrophic right kidney Exophytic left renal cyst Staghorn calculi-asymptomatic, no intervention per urology Obesity, BMI 35 Generalized weakness/SNU resident History of osteoarthritis-basically bedbound History of Present Illness History of Present Illness GNR UTI - ID sensitivity still pending On Zyvox and Zosyn Miller will need to be changed qmonthly in SNU SHe is a long-term resident of [facility] She came from [facility] for need for urology cystogram done by urology She has no complaints aside from some nausea she claims to much IV fluids Plan: dc any IVF, anti nausea meds We will DC back to care home once I have urine culture identification and sensitivities I cannot DC with by mouth antibiotics blindly because of indwelling suprapubic catheter, complicated UTI, GNR UTI on pulmonary urine culture Vitals Vitals Vital Signs Date Time Temp Pulse Resp B/P (MAP) Pulse Ox O2 Delivery O2 Flow Rate FiO2 11/14/18 11:00 97.9 77 18 173/87 (115) 94 Room Air 97.9 11/14/18 10:12 2.0 Physical Exam General: Alert, Oriented X3, Cooperative, No acute distress, Other (crit at bedside) Heart: Regular rate, Normal S1, Normal S2 Lungs: Clear Abdomen: Normal bowel sounds, Soft, No tenderness Extremities: No clubbing, No cyanosis, No edema Skin: No rashes, No breakdown, No significant lesion Labs LABS Laboratory Tests Test 11/13/18 15:00 Urine Collection Type U cath Urine Color Yellow Urine Clarity Clear Urine pH 6.5 Urine Specific [place] 1.020 Urine Protein 100 mg/dL (NEG-TRACE) Urine Glucose (UA) Negative mg/dL (NEG) Urine Ketones (Stick) Negative mg/dL (NEG) Urine Blood Large (NEG) Urine Nitrite Negative (NEG) Urine Bilirubin Negative (NEG) Urine Urobilinogen Dipstick 0.2 mg/dL (0.2 mg/dL) Urine Leukocyte Esterase Large (NEG) Urine RBC 6-10 /HPF (0-2) Urine WBC 11-20 /HPF (0-4) Urine Squamous Epithelial Cells Few /LPF Urine Bacteria Few /HPF (0-FEW) Urine Mucus Slight /LPF Review of Systems Review of Systems Nauseated, otherwise the rest of ROS 14 point negative Comment Review of Relevant I have reviewed the following items king (where applicable) has been applied. Labs Laboratory Tests Test 11/12/18 22:15 11/13/18 06:50 11/13/18 15:00 Urine Collection Type Unknown U cath Urine Color Yellow Yellow Urine Clarity Clear Clear Urine pH 7.5 6.5 Urine Specific [place] 1.010 1.020 Urine Protein Negative mg/dL (NEG-TRACE) 100 mg/dL (NEG-TRACE) Urine Glucose (UA) Negative mg/dL (NEG) Negative mg/dL (NEG) Urine Ketones (Stick) Negative mg/dL (NEG) Negative mg/dL (NEG) Urine Blood Moderate (NEG) Large (NEG) Urine Nitrite Positive (NEG) Negative (NEG) Urine Bilirubin Negative (NEG) Negative (NEG) Urine Urobilinogen Dipstick 0.2 mg/dL (0.2 mg/dL) 0.2 mg/dL (0.2 mg/dL) Urine Leukocyte Esterase Large (NEG) Large (NEG) Urine RBC 1-2 /HPF (0-2) 6-10 /HPF (0-2) Urine WBC 5-10 /HPF (0-4) 11-20 /HPF (0-4) Urine Squamous Epithelial Cells Few /LPF Few /LPF Urine Bacteria Many /HPF (0-FEW) Few /HPF (0-FEW) Urine Mucus Slight /LPF Slight /LPF Erythrocyte Sedimentation Rate 53 (0-25) Laboratory Tests Test 11/13/18 15:00 Urine Collection Type U cath Urine Color Yellow Urine Clarity Clear Urine pH 6.5 Urine Specific [place] 1.020 Urine Protein 100 mg/dL (NEG-TRACE) Urine Glucose (UA) Negative mg/dL (NEG) Urine Ketones (Stick) Negative mg/dL (NEG) Urine Blood Large (NEG) Urine Nitrite Negative (NEG) Urine Bilirubin Negative (NEG) Urine Urobilinogen Dipstick 0.2 mg/dL (0.2 mg/dL) Urine Leukocyte Esterase Large (NEG) Urine RBC 6-10 /HPF (0-2) Urine WBC 11-20 /HPF (0-4) Urine Squamous Epithelial Cells Few /LPF Urine Bacteria Few /HPF (0-FEW) Urine Mucus Slight /LPF Microbiology 11/10/18 Urine Culture - Preliminary, Resulted 11/10/18 Urine Culture Result 1 (DARLENE) - Preliminary, Resulted Medications Current Medications Acetaminophen (Tylenol) 650 mg BID PO ; Start 11/10/18 at 12:30; Stop 11/10/18 at 22:06; Status DC Acetaminophen (Tylenol) 650 mg PRN Q8HRS PRN PO MILD PAIN Last administered on 11/14/18 06:49; Start 11/10/18 at 12:00 Amlodipine Besylate (Norvasc) 5 mg DAILY PO Last administered on 11/14/18 08: 04; Start 11/10/18 at 12:30; Stop 11/14/18 at 09:04; Status DC Apixaban (Eliquis) 2.5 mg BID PO Last administered on 11/12/18 09:32; Start at 12:30; Stop 11/12/18 at 13:23; Status DC Atorvastatin Calcium (Lipitor) 20 mg HS PO Last administered on 11/13/18 20:23 ; Start 11/10/18 at 21:00 Docusate Sodium (Colace) 200 mg DAILY08 PO Last administered on 11/14/18 08:05 ; Start 11/10/18 at 12:30 Levothyroxine Sodium (Synthroid) 75 mcg DAILYAC PO Last administered on 08:04; Start 11/10/18 at 12:30 Magnesium Hydroxide (Milk Of Magnesia) 400 mg PRN DAILY PRN PO CONSTIPATION Last administered on 11/12/18 15:38; Start 11/10/18 at 12:00 Metoprolol Tartrate (Lopressor) 25 mg DAILY PO Last administered on 11/14/18 08:06; Start 11/10/18 at 12:30 Nystatin (Nystop) 1 bob BID TP Last administered on 11/14/18 08:11; Start at 12:30 Vitamin D (Vitamin D3) 1,000 unit DAILY PO Last administered on 11/14/18 08:05 ; Start 11/10/18 at 12:30 Cyanocobalamin (Vitamin B-12) 250 mcg DAILY PO Last administered on 11/14/18 08:05; Start 11/10/18 at 12:30 Famotidine (Pepcid) 40 mg DAILY PO Last administered on 11/14/18 08:11; Start 11/10/18 at 12:30 Loperamide HCl (Imodium) 2 mg PRN QID PRN PO DIARRHEA; Start 11/10/18 at 12:30 Magnesium Oxide (Magnesium Oxide) 400 mg DAILY08 PO Last administered on 08:05; Start 11/10/18 at 12:30 Multivitamins (Thera M Plus) 1 tab DAILY08 PO Last administered on 11/14/18 08 :05; Start 11/10/18 at 12:30 Ondansetron HCl (Zofran Odt) 4 mg PRN Q6HRS PRN PO NAUSEA/VOMITING Last administered on 11/12/18 09:22; Start 11/10/18 at 12:30 Polyethylene Glycol (miraLAX PACKET) 17 gm DAILY08 PO Last administered on 11/13 08:53; Start 11/10/18 at 12:30 Sodium Chloride (Saline Mist Nasal) 1 bob PRN Q1HR PRN NS NASAL CONGESTION; Start 11/10/18 at 12:30 Non-Formulary Medication (Ubidecarenone (Coenzyme Q10)) 100 mg DAILY08 PO ; Start 11/11/18 at 08:00; Status UNV Oxycodone/ Acetaminophen (Percocet 7.5/ 325) 1 tab PRN Q6HRS PRN PO MODERATE TO SEVERE PAIN Last administered on 11/13/18 06:17; Start 11/10/18 at 12:00 Linezolid/Dextrose 300 ml @ 300 mls/hr Q12HR IV Last administered on 08:06; Start 11/10/18 at 13:00 Lactobacillus Rhamnosus (Culturelle) 1 cap BID PO Last administered on 08:05; Start 11/10/18 at 12:30 Bisacodyl (Dulcolax Tab) 10 mg PRN Q12HRS PRN PO CONSTIPATION, 2nd CHOICE; Start 11/10/18 at 12:00 Fentanyl Citrate (Fentanyl 2ml Vial) 50 mcg PRN Q2HR PRN IV PAIN Last administered on 11/11/18 11:04; Start 11/10/18 at 22:15; Stop 11/12/18 at 13:14 ; Status DC Diphenhydramine HCl (Benadryl) 25 mg PRN QHS PRN PO INSOMNIA Last administered on 11/10/18at 22:30; Start 11/10/18 at 22:15; Stop 11/11/18 at 14:28; Status DC Fentanyl Citrate (Fentanyl 2ml Vial) 50 mcg PRN Q2HR PRN IV PAIN; Start at 08:15 Ascorbic Acid (Vitamin C) 500 mg DAILY PO Last administered on 11/14/18 08:05 ; Start 11/11/18 at 12:00 Info (Anti-Coagulation Monitoring By Pharmacy) 1 each PRN DAILY PRN MC SEE COMMENTS Last administered on 11/13/18at 16:10; Start 11/11/18 at 14:15 Diphenhydramine HCl (Benadryl) 25 mg PRN Q6HRS PRN PO ITCHING/ INSOMNIA; Start 11/11/18 at 14:30 Apixaban (Eliquis) 5 mg BID PO Last administered on 11/14/18at 08:05; Start at 21:00 Piperacillin Sod/ Tazobactam Sod 3.375 gm/Sodium Chloride 50 ml @ 100 mls/hr Q6HRS IV Last administered on 11/14/18 06:15; Start 11/12/18 at 17:00 Prednisone (Prednisone) 20 mg 1X ONCE PO Last administered on 11/12/18at 18:09 ; Start 11/12/18 at 18:00; Stop 11/12/18 at 18:01; Status DC Prednisone (Prednisone) 20 mg 1X ONCE PO Last administered on 11/12/18at 23:19 ; Start 11/12/18 at 23:00; Stop 11/12/18 at 23:01; Status DC Prednisone (Prednisone) 20 mg 1X ONCE PO Last administered on 11/13/18 06:16 ; Start 11/13/18 at 06:00; Stop 11/13/18 at 06:01; Status DC Diphenhydramine HCl (Benadryl) 50 mg PRN Q6HRS PRN PO ITCHING Last administered on 11/13/18at 14:21; Start 11/13/18 at 12:01 Alteplase, Recombinant (Cathflo For Central Catheter Clearance) 1 mg 1X ONCE INT CAT Last administered on 11/13/18at 06:06; Start 11/13/18 at 05:30; Stop at 05:31; Status DC Iohexol (Omnipaque 300 Mg/ml) 200 ml 1X ONCE IJ Last administered on at 14:30; Start 11/13/18 at 14:30; Stop 11/13/18 at 14:40; Status DC Info (CONTRAST GIVEN -- Rx MONITORING) 1 each PRN DAILY PRN MC SEE COMMENTS; Start 11/13/18 at 14:45; Stop 11/15/18 at 14:44 Amlodipine Besylate (Norvasc) 10 mg DAILY PO Last administered on 11/14/18at 09: 21; Start 11/14/18 at 09:10 Clonidine HCl (Catapres) 0.1 mg PRN Q1HR PRN PO HYPERTENSION, SEE COMMENTS; Start 11/14/18 at 09:15 Active Scripts Active Reported Saline Nasal [place] (Sodium Chloride) 30 Ml [place] 1 [place] NS PRN Q1HR PRN Ondansetron Hcl 4 Mg Tablet 1 Tab PO PRN Q6HRS Nystatin 15 Gm Powder 15 Gm TP BID Metoprolol Tartrate 25 Mg Tablet 25 Mg PO DAILY Levothyroxine Sodium 75 Mcg Tablet 75 Mcg PO DAILYAC DURAGESIC 100mcg/hr (Fentanyl) 1 Each Patch.td72 1 Patch TD Q72H Famotidine 40 Mg Tablet 40 Mg PO DAILY Cranberry (Cranberry Extract) 425 Mg Capsule 850 Mg PO BID Rolaids Chewable Tablet (Calcium Carb/Magnesium Hydrox) 1 Each Tab.chew 1 Each PO PRN Q6HRS PRN Atorvastatin Calcium 20 Mg Tablet 20 Mg PO HS Eliquis (Apixaban) 2.5 Mg Tablet 2.5 Mg PO BID Amlodipine Besylate 5 Mg Tablet 5 Mg PO DAILY Pro-Stat Liquid (Amino Acids/Protein Hydrolys) 30 Ml Liquid 30 Ml PO DAILY Tylenol (Acetaminophen) 325 Mg Tablet 650 Mg PO PRN Q8HRS PRN Milk Of Magnesia (Magnesium Hydroxide) 400 Mg/5 Ml Oral.susp 400 Mg PO PRN DAILY PRN Loperamide (Loperamide Hcl) 2 Mg Capsule 2 Mg PO PRN QID PRN Bisacodyl 10 Mg Supp.rect 10 Mg RC PRN DAILY PRN Vitamin B-12 (Cyanocobalamin (Vitamin B-12)) 250 Mcg Tablet 250 Mcg PO DAILY Floranex Tablet (Acidophilus/Bulgaricus) 1 Each Tablet 1 Each PO BID Vitamin D (Cholecalciferol (Vitamin D3)) 1,000 Unit Capsule 1,000 Unit PO DAILY Miralax (Polyethylene Glycol 3350) 17 Gm Powd.pack 1 Pkt PO DAILY08 Multivitamins (Multivitamin) 1 Each Tablet 1 Each PO DAILY08 Magnesium Oxide 400 Mg Tablet 400 Mg PO DAILY08 Docusate Sodium 100 Mg Capsule 200 Mg PO DAILY08 Coenzyme Q10 (Ubidecarenone) 100 Mg Capsule 100 Mg PO DAILY08 Tylenol (Acetaminophen) 325 Mg Tablet 650 Mg PO BID Vitals/I & O Vital Sign - Last 24 Hours 11/13/18 11/13/18 11/13/18 11/13/18 15:00 19:00 20:00 23:00 Temp 98.4 98.4 98.0 98.4 98.4 98.0 Pulse 88 88 80 Resp 17 17 17 B/P (MAP) 171/90 (117) 158/82 (107) 145/74 (97) Pulse Ox 96 93 94 O2 Delivery Room Air Room Air Room Air Room Air 11/14/18 11/14/18 11/14/18 11/14/18 03:00 07:00 08:00 08:04 Temp 98.0 98.2 98.0 98.2 Pulse 83 79 79 Resp 17 16 B/P (MAP) 137/78 (97) 163/73 (103) 163/73 Pulse Ox 94 94 O2 Delivery Room Air Room Air Room Air 11/14/18 11/14/18 11/14/18 11/14/18 08:06 09:21 10:12 11:00 Temp 97.9 97.9 Pulse 79 79 77 Resp 18 B/P (MAP) 163/73 163/73 173/87 (115) Pulse Ox 94 O2 Delivery Room Air Room Air O2 Flow Rate 2.0 Intake and Output 11/13/18 11/13/18 11/14/18 15:00 23:00 07:00 Intake Total 0 ml 0 ml Output Total 1950 ml Balance 0 ml -1950 ml DESTINY GRANADO MD Nov 14, 2018 12:09
[2018-11-14 15:00] VITALS: BP 146/80
[2018-11-14] MEDS: oxyCODONE/APAP 7.5/325 1 TAB TABLET PO PRN (15:42)
[2018-11-14] MEDS: ANTI-COAG MONITOR BY PHARMACY. MC PRN (16:09)
[2018-11-14 19:00] VITALS: BP 150/80
[2018-11-14] MEDS: ATORVASTATIN CALCIUM 20 MG TABLET PO SCH (20:21)
[2018-11-14 23:00] VITALS: BP 150/89
[2018-11-15] MEDS: PIPERACILLIN/TAZOBACTAM 3.375 GM in IV NORMAL SALINE 50ML 50 ML IV SCH ×5 (00:04→23:32)
[2018-11-15 03:00] VITALS: BP 153/81
[2018-11-15] MEDS: oxyCODONE/APAP 7.5/325 1 TAB TABLET PO PRN ×3 (05:10→22:41)
[2018-11-15 07:00] VITALS: BP 169/89
[2018-11-15] MEDS: LEVOTHYROXINE 75 MCG TABLET PO SCH (07:25)
[2018-11-15] MEDS: DOCUSATE SODIUM 100 MG CAPSULE. PO SCH (08:00)
[2018-11-15] MEDS: POLYETHYLENE GLYCOL 3350 17 GM PACKET. PO SCH (08:00)
[2018-11-15] MEDS: CYANOCOBALAMIN (VITAMIN B-12) 1,000 MCG TABLET. PO SCH (08:35)
[2018-11-15] MEDS: CHOLECALCIFEROL (VITAMIN D3) 1,000 UNIT TABLET PO SCH (08:35)
[2018-11-15] MEDS: FAMOTIDINE 20 MG TABLET. PO SCH (08:36)
[2018-11-15] MEDS: MULTIVITAMIN with MINERAL TABLET. PO SCH (08:36)
[2018-11-15] MEDS: APIXABAN 5 MG TABLET. PO SCH ×2 (08:36→20:47)
[2018-11-15] MEDS: LACTOBACILLUS RHAMNOSUS GG 1 CAPSULE. PO SCH ×2 (08:36→20:46)
[2018-11-15] MEDS: ASCORBIC ACID 500 MG TABLET PO SCH (08:36)
[2018-11-15] MEDS: amLODIPine BESYLATE 5 MG TABLET PO SCH (08:37)
[2018-11-15] MEDS: METOPROLOL TART IMMED RELEASE 25 MG TABLET. PO SCH (08:37)
[2018-11-15] MEDS: MAGNESIUM OXIDE 400 MG TABLET PO SCH (08:42)
[2018-11-15] MEDS: ACETAMINOPHEN 325 MG TABLET. PO PRN ×2 (08:42→20:52)
[2018-11-15] MEDS: NYSTATIN TOPICAL POWDER 15GM BOTTLE. TP SCH ×2 (08:44→20:47)
--- NOTE | 2018-11-15 09:27 | PDOC ---
PROGRESS NOTES Chief Complaint Chief Complaint Indwelling Suprapubic catheter-gets change every of the month PSeudomonas UTI complicated Multiple drug allergies Atrophic right kidney Exophytic left renal cyst Staghorn calculi-asymptomatic, no intervention per urology Obesity, BMI 35 Generalized weakness/SNU resident History of osteoarthritis-basically bedbound History of Present Illness History of Present Illness Pseudomonas aeruginosa Greater than 100,000 colony forming units per mL ANTIMICROBIAL SUSCEPTIBILITY Final Comment S = Susceptible; I = Intermediate; R = Resistant P = Positive; N = Negative MICS are expressed in micrograms per mL Antibiotic RSLT#1 RSLT#2 RSLT#3 RSLT#4 Amikacin R>=64 Cefepime S =4 Ceftazidime S =4 Ciprofloxacin R>=4 Gentamicin R>=16 Imipenem S =2 Levofloxacin R>=8 Meropenem S =0.5 Piperacillin S =64 Ticarcillin R =R Tobramycin I =8 Performed at: DA - [facility] [address], [place], [place] [id number] Repair Department Manager: JORGE Carbone MD, Phone: [phone] She has multiple drug allergies I need ID expertise as to what by mouth antibiotic to send her home with to SNU Plan: consult ID Vitals Vitals Vital Signs Date Time Temp Pulse Resp B/P (MAP) Pulse Ox O2 Delivery O2 Flow Rate FiO2 11/15/18 08:37 84 169/89 11/15/18 07:00 97.7 16 96 Room Air 97.7 11/14/18 10:12 2.0 Physical Exam General: Alert, Oriented X3, Cooperative, No acute distress, Other (crit at bedside) Heart: Regular rate, Normal S1, Normal S2 Lungs: Clear Abdomen: Normal bowel sounds, Soft, No tenderness Extremities: No clubbing, No cyanosis, No edema Skin: No rashes, No breakdown, No significant lesion Review of Systems Review of Systems A 14 point ROS was completed with the following noted as positive: Other systems reviewed and negative. \CONSTITUTIONAL: No fever or chills EYES: No recent changes SKIN: No rash or itching CARDIOVASCULAR: No chest pain, syncope, palpitations, or edema RESPIRATORY: No SOB or cough GASTROINTESTINAL: No nausea, vomiting or abdominal pain NEUROLOGICAL: No headaches or weakness ENDOCRINE: No cold or heat intolerance GENITOURINARY: No urgency or frequency of urination MUSCULOSKELETAL: No back pain or joint pain LYMPHATICS: No enlarged lymph nodes PSYCHIATRIC: No anxiety or depression Comment Review of Relevant I have reviewed the following items king (where applicable) has been applied. Labs Laboratory Tests Test 11/13/18 15:00 Urine Collection Type U cath Urine Color Yellow Urine Clarity Clear Urine pH 6.5 Urine Specific [place] 1.020 Urine Protein 100 mg/dL (NEG-TRACE) Urine Glucose (UA) Negative mg/dL (NEG) Urine Ketones (Stick) Negative mg/dL (NEG) Urine Blood Large (NEG) Urine Nitrite Negative (NEG) Urine Bilirubin Negative (NEG) Urine Urobilinogen Dipstick 0.2 mg/dL (0.2 mg/dL) Urine Leukocyte Esterase Large (NEG) Urine RBC 6-10 /HPF (0-2) Urine WBC 11-20 /HPF (0-4) Urine Squamous Epithelial Cells Few /LPF Urine Bacteria Few /HPF (0-FEW) Urine Mucus Slight /LPF Microbiology 11/12/18 Urine Culture - Preliminary, Resulted 11/12/18 Urine Culture Result 1 (DARLENE) - Preliminary, Resulted Medications Current Medications Acetaminophen (Tylenol) 650 mg BID PO ; Start 11/10/18 at 12:30; Stop 11/10/18 at 22:06; Status DC Acetaminophen (Tylenol) 650 mg PRN Q8HRS PRN PO MILD PAIN Last administered on 11/15/18at 08:42; Start 11/10/18 at 12:00 Amlodipine Besylate (Norvasc) 5 mg DAILY PO Last administered on 11/14/18at 08: 04; Start 11/10/18 at 12:30; Stop 11/14/18 at 09:04; Status DC Apixaban (Eliquis) 2.5 mg BID PO Last administered on 11/12/18at 09:32; Start at 12:30; Stop 11/12/18 at 13:23; Status DC Atorvastatin Calcium (Lipitor) 20 mg HS PO Last administered on 11/14/18at 20:21 ; Start 11/10/18 at 21:00 Docusate Sodium (Colace) 200 mg DAILY08 PO Last administered on 11/14/18at 08:05 ; Start 11/10/18 at 12:30 Levothyroxine Sodium (Synthroid) 75 mcg DAILYAC PO Last administered on 07:25; Start 11/10/18 at 12:30 Magnesium Hydroxide (Milk Of Magnesia) 400 mg PRN DAILY PRN PO CONSTIPATION Last administered on 11/12/18 15:38; Start 11/10/18 at 12:00 Metoprolol Tartrate (Lopressor) 25 mg DAILY PO Last administered on 11/15/18 08:37; Start 11/10/18 at 12:30 Nystatin (Nystop) 1 bob BID TP Last administered on 11/15/18 08:44; Start at 12:30 Vitamin D (Vitamin D3) 1,000 unit DAILY PO Last administered on 11/15/18 08:35 ; Start 11/10/18 at 12:30 Cyanocobalamin (Vitamin B-12) 250 mcg DAILY PO Last administered on 11/15/18 08:35; Start 11/10/18 at 12:30 Famotidine (Pepcid) 40 mg DAILY PO Last administered on 11/15/18 08:36; Start 11/10/18 at 12:30 Loperamide HCl (Imodium) 2 mg PRN QID PRN PO DIARRHEA; Start 11/10/18 at 12:30 Magnesium Oxide (Magnesium Oxide) 400 mg DAILY08 PO Last administered on 08:42; Start 11/10/18 at 12:30 Multivitamins (Thera M Plus) 1 tab DAILY08 PO Last administered on 11/15/18 08 :36; Start 11/10/18 at 12:30 Ondansetron HCl (Zofran Odt) 4 mg PRN Q6HRS PRN PO NAUSEA/VOMITING Last administered on 11/12/18 09:22; Start 11/10/18 at 12:30 Polyethylene Glycol (miraLAX PACKET) 17 gm DAILY08 PO Last administered on 11/13 08:53; Start 11/10/18 at 12:30 Sodium Chloride (Saline Mist Nasal) 1 bob PRN Q1HR PRN NS NASAL CONGESTION; Start 11/10/18 at 12:30 Non-Formulary Medication (Ubidecarenone (Coenzyme Q10)) 100 mg DAILY08 PO ; Start 11/11/18 at 08:00; Status UNV Oxycodone/ Acetaminophen (Percocet 7.5/ 325) 1 tab PRN Q6HRS PRN PO MODERATE TO SEVERE PAIN Last administered on 11/15/18 05:10; Start 11/10/18 at 12:00 Linezolid/Dextrose 300 ml @ 300 mls/hr Q12HR IV Last administered on 08:38; Start 11/10/18 at 13:00 Lactobacillus Rhamnosus (Culturelle) 1 cap BID PO Last administered on 08:36; Start 11/10/18 at 12:30 Bisacodyl (Dulcolax Tab) 10 mg PRN Q12HRS PRN PO CONSTIPATION, 2nd CHOICE; Start 11/10/18 at 12:00 Fentanyl Citrate (Fentanyl 2ml Vial) 50 mcg PRN Q2HR PRN IV PAIN Last administered on 11/11/18 11:04; Start 11/10/18 at 22:15; Stop 11/12/18 at 13:14 ; Status DC Diphenhydramine HCl (Benadryl) 25 mg PRN QHS PRN PO INSOMNIA Last administered on 11/10/18 22:30; Start 11/10/18 at 22:15; Stop 11/11/18 at 14:28; Status DC Fentanyl Citrate (Fentanyl 2ml Vial) 50 mcg PRN Q2HR PRN IV PAIN; Start at 08:15 Ascorbic Acid (Vitamin C) 500 mg DAILY PO Last administered on 11/15/18 08:36 ; Start 11/11/18 at 12:00 Info (Anti-Coagulation Monitoring By Pharmacy) 1 each PRN DAILY PRN MC SEE COMMENTS Last administered on 11/14/18 16:09; Start 11/11/18 at 14:15 Diphenhydramine HCl (Benadryl) 25 mg PRN Q6HRS PRN PO ITCHING/ INSOMNIA; Start 11/11/18 at 14:30 Apixaban (Eliquis) 5 mg BID PO Last administered on 11/15/18 08:36; Start at 21:00 Piperacillin Sod/ Tazobactam Sod 3.375 gm/Sodium Chloride 50 ml @ 100 mls/hr Q6HRS IV Last administered on 11/15/18 05:49; Start 11/12/18 at 17:00 Prednisone (Prednisone) 20 mg 1X ONCE PO Last administered on 11/12/18at 18:09 ; Start 11/12/18 at 18:00; Stop 11/12/18 at 18:01; Status DC Prednisone (Prednisone) 20 mg 1X ONCE PO Last administered on 11/12/18at 23:19 ; Start 11/12/18 at 23:00; Stop 11/12/18 at 23:01; Status DC Prednisone (Prednisone) 20 mg 1X ONCE PO Last administered on 11/13/18at 06:16 ; Start 11/13/18 at 06:00; Stop 11/13/18 at 06:01; Status DC Diphenhydramine HCl (Benadryl) 50 mg PRN Q6HRS PRN PO ITCHING Last administered on 11/13/18at 14:21; Start 11/13/18 at 12:01 Alteplase, Recombinant (Cathflo For Central Catheter Clearance) 1 mg 1X ONCE INT CAT Last administered on 11/13/18at 06:06; Start 11/13/18 at 05:30; Stop at 05:31; Status DC Iohexol (Omnipaque 300 Mg/ml) 200 ml 1X ONCE IJ Last administered on at 14:30; Start 11/13/18 at 14:30; Stop 11/13/18 at 14:40; Status DC Info (CONTRAST GIVEN -- Rx MONITORING) 1 each PRN DAILY PRN MC SEE COMMENTS; Start 11/13/18 at 14:45; Stop 11/15/18 at 14:44 Amlodipine Besylate (Norvasc) 10 mg DAILY PO Last administered on 11/15/18at 08: 37; Start 11/14/18 at 09:10 Clonidine HCl (Catapres) 0.1 mg PRN Q1HR PRN PO HYPERTENSION, SEE COMMENTS; Start 11/14/18 at 09:15 Active Scripts Active Reported Saline Nasal [place] (Sodium Chloride) 30 Ml [place] 1 [place] NS PRN Q1HR PRN Ondansetron Hcl 4 Mg Tablet 1 Tab PO PRN Q6HRS Nystatin 15 Gm Powder 15 Gm TP BID Metoprolol Tartrate 25 Mg Tablet 25 Mg PO DAILY Levothyroxine Sodium 75 Mcg Tablet 75 Mcg PO DAILYAC DURAGESIC 100mcg/hr (Fentanyl) 1 Each Patch.td72 1 Patch TD Q72H Famotidine 40 Mg Tablet 40 Mg PO DAILY Cranberry (Cranberry Extract) 425 Mg Capsule 850 Mg PO BID Rolaids Chewable Tablet (Calcium Carb/Magnesium Hydrox) 1 Each Tab.chew 1 Each PO PRN Q6HRS PRN Atorvastatin Calcium 20 Mg Tablet 20 Mg PO HS Eliquis (Apixaban) 2.5 Mg Tablet 2.5 Mg PO BID Amlodipine Besylate 5 Mg Tablet 5 Mg PO DAILY Pro-Stat Liquid (Amino Acids/Protein Hydrolys) 30 Ml Liquid 30 Ml PO DAILY Tylenol (Acetaminophen) 325 Mg Tablet 650 Mg PO PRN Q8HRS PRN Milk Of Magnesia (Magnesium Hydroxide) 400 Mg/5 Ml Oral.susp 400 Mg PO PRN DAILY PRN Loperamide (Loperamide Hcl) 2 Mg Capsule 2 Mg PO PRN QID PRN Bisacodyl 10 Mg Supp.rect 10 Mg RC PRN DAILY PRN Vitamin B-12 (Cyanocobalamin (Vitamin B-12)) 250 Mcg Tablet 250 Mcg PO DAILY Floranex Tablet (Acidophilus/Bulgaricus) 1 Each Tablet 1 Each PO BID Vitamin D (Cholecalciferol (Vitamin D3)) 1,000 Unit Capsule 1,000 Unit PO DAILY Miralax (Polyethylene Glycol 3350) 17 Gm Powd.pack 1 Pkt PO DAILY08 Multivitamins (Multivitamin) 1 Each Tablet 1 Each PO DAILY08 Magnesium Oxide 400 Mg Tablet 400 Mg PO DAILY08 Docusate Sodium 100 Mg Capsule 200 Mg PO DAILY08 Coenzyme Q10 (Ubidecarenone) 100 Mg Capsule 100 Mg PO DAILY08 Tylenol (Acetaminophen) 325 Mg Tablet 650 Mg PO BID Vitals/I & O Vital Sign - Last 24 Hours 11/14/18 11/14/18 11/14/18 11/14/18 10:12 11:00 15:00 15:42 Temp 97.9 98.1 97.9 98.1 Pulse 77 81 Resp 18 18 B/P (MAP) 173/87 (115) 146/80 (102) Pulse Ox 94 94 O2 Delivery Room Air Room Air Room Air Room Air O2 Flow Rate 2.0 11/14/18 11/14/18 11/14/18 11/14/18 18:07 19:00 20:05 23:00 Temp 98.1 98.0 98.1 98.0 Pulse 84 89 Resp 18 18 B/P (MAP) 150/80 (103) 150/89 (109) Pulse Ox 96 95 O2 Delivery Room Air Room Air Room Air Room Air 11/15/18 11/15/18 11/15/18 11/15/18 03:00 05:10 06:09 07:00 Temp 97.9 97.7 97.9 97.7 Pulse 76 84 Resp 18 18 16 16 B/P (MAP) 153/81 (105) 169/89 (115) Pulse Ox 91 96 O2 Delivery Room Air Room Air Room Air 11/15/18 11/15/18 08:37 08:37 Pulse 84 84 B/P (MAP) 169/89 169/89 Intake and Output 11/14/18 11/14/18 11/15/18 15:00 23:00 07:00 Intake Total 350 ml 450 ml 220 ml Output Total 1651 ml 1000 ml Balance 350 ml -1201 ml -780 ml DESTINY GRANADO MD Nov 15, 2018 09:27
[2018-11-15 11:00] VITALS: BP 149/80
--- NOTE | 2018-11-15 13:02 | PDOC ---
Infectious Disease Note Vital Sign Vital Signs Vital Signs Date Time Temp Pulse Resp B/P (MAP) Pulse Ox O2 Delivery O2 Flow Rate FiO2 11/15/18 11:00 97.6 80 18 149/80 (103) 97 Room Air 97.6 11/14/18 10:12 2.0 Physical Exam PHYSICAL EXAM RUE-PICC Labs Micro 11/10. URINE CULTURE RES 1 Final Pseudomonas aeruginosa Greater than 100,000 colony forming units per mL MICS are expressed in micrograms per mL Antibiotic RSLT#1 Amikacin R>=64 Cefepime S =4 Ceftazidime S =4 Ciprofloxacin R>=4 Gentamicin R>=16 Imipenem S =2 Levofloxacin R>=8 Meropenem S =0.5 Piperacillin S =64 Ticarcillin R =R Tobramycin I =8 11/12. URINE CULTURE RES 1 Preliminary Gram negative rods Greater than 100,000 colony forming units per Objective Assessment PSA CA-UTI, POA Chronic SPC, last changed 11/13 -s/p cystogram 11/13 Multiple abx allergies: PCN rash, (tolerates amoxicillin), Keflex rash, cipro rash, vanc and doxy Right kidney with a staghorn per urology Abdominal wounds from spilt coffee per patient h/x CVA Plan Plan of Care Continue Zosyn since 11/13, no oral options d/c Zyvox SPC care Monitor labs/temp Supportive care D/w Dr. Elder Thank you Attending Co-Sign Attending Co-Sign The patient was seen and interviewed as well as examined at the bedside. The chart was reviewed. The case was discussed. Agree with the plan of care. KAYCE DUBOIS APRN Nov 15, 2018 13:02 CAROLINA JUNG MD Nov 15, 2018 14:01
[2018-11-15 15:00] VITALS: BP 139/83
[2018-11-15] MEDS: ANTI-COAG MONITOR BY PHARMACY. MC PRN (15:15)
[2018-11-15 19:00] VITALS: BP 140/77
[2018-11-15] MEDS: ATORVASTATIN CALCIUM 20 MG TABLET PO SCH (20:47)
[2018-11-15 23:02] VITALS: BP 167/93
[2018-11-16] VITALS (7 sets, daily range): BP systolic 125–183; BP diastolic 62–87
[2018-11-16] MEDS: oxyCODONE/APAP 7.5/325 1 TAB TABLET PO PRN ×3 (04:30→20:06)
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
[2018-11-16] MEDS: PIPERACILLIN/TAZOBACTAM 3.375 GM in IV NORMAL SALINE 50ML 50 ML IV SCH ×3 (05:50→17:31)
[2018-11-16] MEDS: LEVOTHYROXINE 75 MCG TABLET PO SCH (07:22)
[2018-11-16] MEDS: DOCUSATE SODIUM 100 MG CAPSULE. PO SCH (08:00)
[2018-11-16] MEDS: POLYETHYLENE GLYCOL 3350 17 GM PACKET. PO SCH (08:00)
[2018-11-16] MEDS: ASCORBIC ACID 500 MG TABLET PO SCH (08:24)
[2018-11-16] MEDS: MULTIVITAMIN with MINERAL TABLET. PO SCH (08:24)
[2018-11-16] MEDS: LACTOBACILLUS RHAMNOSUS GG 1 CAPSULE. PO SCH ×2 (08:24→20:06)
[2018-11-16] MEDS: FAMOTIDINE 20 MG TABLET. PO SCH (08:24)
[2018-11-16] MEDS: MAGNESIUM OXIDE 400 MG TABLET PO SCH (08:24)
[2018-11-16] MEDS: amLODIPine BESYLATE 5 MG TABLET PO SCH (08:25)
[2018-11-16] MEDS: METOPROLOL TART IMMED RELEASE 25 MG TABLET. PO SCH (08:25)
[2018-11-16] MEDS: CYANOCOBALAMIN (VITAMIN B-12) 1,000 MCG TABLET. PO SCH (08:25)
[2018-11-16] MEDS: APIXABAN 5 MG TABLET. PO SCH ×2 (08:25→20:06)
[2018-11-16] MEDS: CHOLECALCIFEROL (VITAMIN D3) 1,000 UNIT TABLET PO SCH (08:25)
[2018-11-16] MEDS: NYSTATIN TOPICAL POWDER 15GM BOTTLE. TP SCH ×2 (08:29→20:07)
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
[2018-11-16] MEDS: ANTI-COAG MONITOR BY PHARMACY. MC PRN (13:34)
[2018-11-16] MEDS: ATORVASTATIN CALCIUM 20 MG TABLET PO SCH (20:06)
[2018-11-17] MEDS: PIPERACILLIN/TAZOBACTAM 3.375 GM in IV NORMAL SALINE 50ML 50 ML IV SCH ×3 (00:45→11:56)
[2018-11-17] MEDS: oxyCODONE/APAP 7.5/325 1 TAB TABLET PO PRN ×2 (02:37→10:18)
[2018-11-17 03:06] VITALS: BP 132/74
[2018-11-17 06:08] LABS: BASO % 0 % (0-3); EOS # 0.2 x10^3/uL (0.0-0.7); EOS % 2 % (0-3); HEMATOCRIT 35.6 % (36.0-47.0); HEMOGLOBIN 11.9 g/dL (12.0-15.5); LYMPH # 2.1 x10^3/uL (1.0-4.8); LYMPH % 29 % (24-48); MEAN CORPUSCULAR HEMOGLOBIN 28 pg (25-35); MEAN CORPUSCULAR HGB CONC 34 g/dL (31-37); MEAN CORPUSCULAR VOLUME 85 fL (79-100); MONO # 0.4 x10^3/uL (0.0-1.1); MONO % 6 % (0-9); NEUT # 4.6 x10^3uL (1.8-7.7); NEUT % 63 % (31-73); PLATELET COUNT 185 x10^3/uL (140-400); RED BLOOD COUNT 4.21 x10^6/uL (3.50-5.40); RED CELL DISTRIBUTION WIDTH 14.7 % (11.5-14.5); WHITE BLOOD COUNT 7.3 x10^3/uL (4.0-11.0)
[2018-11-17 07:00] VITALS: BP 156/79
[2018-11-17] MEDS: POLYETHYLENE GLYCOL 3350 17 GM PACKET. PO SCH (07:54)
[2018-11-17] MEDS: amLODIPine BESYLATE 5 MG TABLET PO SCH (07:55)
[2018-11-17] MEDS: FAMOTIDINE 20 MG TABLET. PO SCH (07:56)
[2018-11-17] MEDS: LACTOBACILLUS RHAMNOSUS GG 1 CAPSULE. PO SCH (07:56)
[2018-11-17] MEDS: ASCORBIC ACID 500 MG TABLET PO SCH (07:56)
[2018-11-17] MEDS: LEVOTHYROXINE 75 MCG TABLET PO SCH (07:56)
[2018-11-17] MEDS: CHOLECALCIFEROL (VITAMIN D3) 1,000 UNIT TABLET PO SCH (07:56)
[2018-11-17] MEDS: DOCUSATE SODIUM 100 MG CAPSULE. PO SCH (07:56)
[2018-11-17] MEDS: MULTIVITAMIN with MINERAL TABLET. PO SCH (07:56)
[2018-11-17] MEDS: MAGNESIUM OXIDE 400 MG TABLET PO SCH (07:57)
[2018-11-17] MEDS: CYANOCOBALAMIN (VITAMIN B-12) 1,000 MCG TABLET. PO SCH (07:57)
[2018-11-17] MEDS: METOPROLOL TART IMMED RELEASE 25 MG TABLET. PO SCH (07:57)
[2018-11-17] MEDS: NYSTATIN TOPICAL POWDER 15GM BOTTLE. TP SCH (09:00)
[2018-11-17] MEDS: APIXABAN 5 MG TABLET. PO SCH (09:00)
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
--- NOTE | 2018-11-17 09:45 | PDOC ---
SUBJECTIVE Subjective Pt did ok over the weekend. No problems with SP tubing OBJECTIVE Objective Physical Exam: General appearance: Alert and Oriented Head: Normocephalic, without obvious abnormality Eyes: conjunctivae/corneas clear. PERRL, EOM's intact. Fundi benign Back:No CVA pain bilaterally Lungs: Regular respirations, non labored breathing Abdomen: soft, non-tender, obese. + SP tubing in place draining clear yellow urine. Device in good working order. SP site has no signs or symptoms of infection. Pelvic: deferred Vital Signs Vital Signs Date Time Temp Pulse Resp B/P (MAP) Pulse Ox O2 Delivery O2 Flow Rate FiO2 11/17/18 07:57 83 156/79 11/17/18 07:55 83 156/79 11/17/18 07:00 98.4 83 20 156/79 (104) 96 Room Air 98.4 11/17/18 03:45 20 Room Air 11/17/18 03:06 98.5 76 20 132/74 (93) 95 Room Air 98.5 11/17/18 02:37 20 Room Air 11/16/18 23:00 98.0 86 20 128/76 (93) 97 Room Air 98.0 11/16/18 20:15 Room Air 11/16/18 20:06 20 Room Air 11/16/18 19:00 97.7 89 20 135/73 (93) 96 Room Air 97.7 11/16/18 15:00 97.9 84 17 126/69 (88) 95 Room Air 2.0 97.9 11/16/18 12:41 18 Room Air 11/16/18 11:38 98.0 72 17 149/80 (103) 96 Room Air 2.0 98.0 11/16/18 11:00 97.8 82 17 125/62 (83) 99 Room Air 97.8 I & O Intake and Output 11/17/18 06:59 Intake Total 930 ml Output Total 550 ml Balance 380 ml Intake Oral 780 ml IV Total 150 ml Output Urine Total 550 ml PHYSICAL EXAM Physical Exam Physical Exam: General appearance: Alert and Oriented Head: Normocephalic, without obvious abnormality Eyes: conjunctivae/corneas clear. PERRL, EOM's intact. Fundi benign Back:No CVA pain bilaterally Lungs: Regular respirations, non labored breathing Abdomen: soft, non-tender, obese. + SP tubing in place draining clear yellow urine. Device in good working order. SP site has no signs or symptoms of infection. Pelvic: deferred ASSESSMENT/PLAN Assessment/Plan Nursing to continue to maintain SP tubing. She has a follow up appointment with Dr. Alatorre for SP tubing change on at [facility] location 12/10/18 at [address] [facility] location Surgeons are not recommending any intervention for kidney stone at this time- Discussed with ID. Ok to discharge to LTC/shelter from a Urology perspective Will sign off at this time, but please call with questions or changes in patient condition. COMMENT Lab Laboratory Tests Test 11/17/18 05:00 White Blood Count 7.3 x10^3/uL (4.0-11.0) Red Blood Count 4.21 x10^6/uL (3.50-5.40) Hemoglobin 11.9 g/dL (12.0-15.5) Hematocrit 35.6 % (36.0-47.0) Mean Corpuscular Volume 85 fL (79-100) Mean Corpuscular Hemoglobin 28 pg (25-35) Mean Corpuscular Hemoglobin Concent 34 g/dL (31-37) Red Cell Distribution Width 14.7 % (11.5-14.5) Platelet Count 185 x10^3/uL (140-400) Neutrophils (%) (Auto) 63 % (31-73) Lymphocytes (%) (Auto) 29 % (24-48) Monocytes (%) (Auto) 6 % (0-9) Eosinophils (%) (Auto) 2 % (0-3) Basophils (%) (Auto) 0 % (0-3) Neutrophils # (Auto) 4.6 x10^3uL (1.8-7.7) Lymphocytes # (Auto) 2.1 x10^3/uL (1.0-4.8) Monocytes # (Auto) 0.4 x10^3/uL (0.0-1.1) Eosinophils # (Auto) 0.2 x10^3/uL (0.0-0.7) Basophils # (Auto) 0.0 x10^3/uL (0.0-0.2) BEN CHINO APRN Nov 17, 2018 09:45
--- NOTE | 2018-11-17 10:19 | SNU/HH DC ---
DISCHARGE ORDERS DISCHARGE INFORMATION: CONDITION ON DISCHARGE: Stable CODE STATUS: Code Status: Full CUSTODIAL: SNF STAY <30 DAYS: No HOSPICE: HOSPICE: No HOSPICE EVAL & TREAT: No LTAC: ADMIT TO LTAC: No POST DISCHARGE ORDERS: ACTIVITY ORDERS: Resume previous activity DIET AFTER DISCHARGE: Cardiac DISCHARGE MEDICATIONS: Home Meds Reported Medications Sodium Chloride (SALINE NASAL SPRAY) 30 Ml [place], 1 SPRAY NS PRN Q1HR PRN for NASAL CONGESTION, #60 ML 11/10/18 Ondansetron Hcl (ONDANSETRON HCL) 4 Mg Tablet, 1 TAB PO PRN Q6HRS for nausea/ vomiting, #10 TAB 1 Refill 11/10/18 Nystatin (NYSTATIN) 15 Gm Powder, 15 GM TP BID for yeast, MISC 11/10/18 Metoprolol Tartrate (METOPROLOL TARTRATE) 25 Mg Tablet, 25 MG PO DAILY for FOR HYPERTENSION, #60 TAB 0 Refills 11/10/18 Levothyroxine Sodium (LEVOTHYROXINE SODIUM) 75 Mcg Tablet, 75 MCG PO DAILYAC for THYROID SUPPLEMENT, #30 TAB 0 Refills 11/10/18 Fentanyl (DURAGESIC 100mcg/hr) 1 Each Patch.td72, 1 PATCH TD Q72H for chronic pain, PATCH 11/10/18 Famotidine (FAMOTIDINE) 40 Mg Tablet, 40 MG PO DAILY for gerd, TAB 11/10/18 Cranberry Extract (CRANBERRY) 425 Mg Capsule, 850 MG PO BID for supplement urinary health, CAP 11/10/18 Calcium Carb/Magnesium Hydrox (Rolaids Chewable Tablet) 1 Each Tab.chew, 1 EACH PO PRN Q6HRS PRN for INDIGESTION, TAB.CHEW 11/10/18 Atorvastatin Calcium (ATORVASTATIN CALCIUM) 20 Mg Tablet, 20 MG PO HS for FOR CHOLESTEROL, #30 TAB 0 Refills 11/10/18 Apixaban (ELIQUIS) 2.5 Mg Tablet, 2.5 MG PO BID for blood thinner, TAB 11/10/18 Amlodipine Besylate (AMLODIPINE BESYLATE) 5 Mg Tablet, 5 MG PO DAILY for hypertension, TAB 11/10/18 Amino Acids/Protein Hydrolys (Pro-Stat Liquid) 30 Ml Liquid, 30 ML PO DAILY for supplement, LIQUID 11/10/18 Acetaminophen (TYLENOL) 325 Mg Tablet, 650 MG PO PRN Q8HRS PRN for PAIN, TAB 11/10/18 Magnesium Hydroxide (MILK OF MAGNESIA) 400 Mg/5 Ml Oral.susp, 400 MG PO PRN DAILY PRN for SEE COMMENTS 03/14/15 Loperamide Hcl (LOPERAMIDE) 2 Mg Capsule, 2 MG PO PRN QID PRN for DIARRHEA 03/14/15 Bisacodyl (BISACODYL) 10 Mg Supp.rect, 10 MG RC PRN DAILY PRN for CONSTIPATION, SUPP.RECT 0 Refills 03/14/15 Cyanocobalamin (Vitamin B-12) (VITAMIN B-12) 250 Mcg Tablet, 250 MCG PO DAILY 03/14/15 Acidophilus/Bulgaricus (FLORANEX TABLET) 1 Each Tablet, 1 EACH PO BID for probiotic supplement 03/14/15 Cholecalciferol (Vitamin D3) (VITAMIN D) 1,000 Unit Capsule, 1000 UNIT PO DAILY for supplement 01/19/15 Polyethylene Glycol 3350 (MIRALAX) 17 Gm Powd.pack, 1 PKT PO DAILY08, PKT 01/19/15 Multivitamin (MULTIVITAMINS) 1 Each Tablet, 1 EACH PO DAILY08 01/19/15 Magnesium Oxide (MAGNESIUM OXIDE) 400 Mg Tablet, 400 MG PO DAILY08 01/19/15 Docusate Sodium (DOCUSATE SODIUM) 100 Mg Capsule, 200 MG PO DAILY08 01/19/15 Ubidecarenone (COENZYME Q10) 100 Mg Capsule, 100 MG PO DAILY08 01/19/15 Acetaminophen (TYLENOL) 325 Mg Tablet, 650 MG PO BID for pain 01/19/15 Discontinued Reported Medications Metoprolol Succinate (METOPROLOL SUCCINATE ( XL )) 25 Mg Tab.er.24h, 25 MG PO DAILY08 for FOR HYPERTENSION, #30 TAB 0 Refills 01/19/15 Levothyroxine Sodium (LEVOTHYROXINE SODIUM) 50 Mcg Tablet, 50 MCG PO DAILY06 for THYROID SUPPLEMENT, #30 TAB 0 Refills 01/19/15 HAYDEE NEWTON III DO Nov 17, 2018 10:19
--- NOTE | 2018-11-17 10:20 | PDOC ---
PROGRESS NOTES Subjective Subjective Suprapubic Smith with UTI Chronic anticoagulation, suprapubic Smith catheter, hypertension, chronic pain, arthritis, constipation, anemia, UTIs, hypothyroidism, GERD. Patient was resting comfortably in bed with no complaints. She has had no problems with her suprapubic catheter tubing. She denies fevers, chills, N/V, CP , SOB, diarrhea. Objective Objective Vital Signs Date Time Temp Pulse Resp B/P (MAP) Pulse Ox O2 Delivery O2 Flow Rate FiO2 11/17/18 07:57 83 156/79 11/17/18 07:00 98.4 20 96 Room Air 98.4 11/16/18 15:00 2.0 Intake and Output 11/17/18 07:00 Intake Total 930 ml Output Total 550 ml Balance 380 ml Intake Oral 780 ml IV Total 150 ml Output Urine Total 550 ml Physical Exam Abdomen: Soft, No tenderness, No masses Heart: Regular rate, Normal S1, Normal S2, No murmurs Extremities: No clubbing, No edema, No tenderness/swelling General: Alert, Oriented X3, Cooperative, No acute distress HEENT: Atraumatic, EOMI, Mucous membr. moist/pink Lungs: Clear to auscultation, Normal air movement MUSCULOSKELETAL: No joint tenderness, No deformity, No swelling Neck: Supple, No JVD, No thyromegaly Neuro: Normal speech, Normal tone, Sensation intact Psych/Mental Status: Mental status NL, Mood NL Skin: No rashes, No breakdown, No significant lesion COMMENT Supra pubic catheter was clean and dry. No signs of infection. Assessment Assessment 1. Pseudomonas aeruginosa catheter associated urinary tract infection, present on admission. 2. Chronic suprapubic catheter. Last changed on 11/13/2018. 3. Multiple antibiotic allergies including PENICILLIN, KEFLEX, CIPRO, all causing rash, as well as VANCOMYCIN, DOXYCYCLINE and SULFA. Currently tolerating Zosyn. 4. 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 5. Abdominal wounds from spilled hot coffee per patient. No signs of infection. 6. History of cerebrovascular accident. Plan Plan of Care Continue zosyn Wound care Monitor smith PT/OT F/u appointment with Dr. Alatorre for SP tubing change at [facility] location 12/10 Continue home meds [facility] Comment Review of Relevant I have reviewed the following items king (where applicable) has been applied. Labs Laboratory Tests Test 11/17/18 05:00 White Blood Count 7.3 x10^3/uL (4.0-11.0) Red Blood Count 4.21 x10^6/uL (3.50-5.40) Hemoglobin 11.9 g/dL (12.0-15.5) Hematocrit 35.6 % (36.0-47.0) Mean Corpuscular Volume 85 fL (79-100) Mean Corpuscular Hemoglobin 28 pg (25-35) Mean Corpuscular Hemoglobin Concent 34 g/dL (31-37) Red Cell Distribution Width 14.7 % (11.5-14.5) Platelet Count 185 x10^3/uL (140-400) Neutrophils (%) (Auto) 63 % (31-73) Lymphocytes (%) (Auto) 29 % (24-48) Monocytes (%) (Auto) 6 % (0-9) Eosinophils (%) (Auto) 2 % (0-3) Basophils (%) (Auto) 0 % (0-3) Neutrophils # (Auto) 4.6 x10^3uL (1.8-7.7) Lymphocytes # (Auto) 2.1 x10^3/uL (1.0-4.8) Monocytes # (Auto) 0.4 x10^3/uL (0.0-1.1) Eosinophils # (Auto) 0.2 x10^3/uL (0.0-0.7) Basophils # (Auto) 0.0 x10^3/uL (0.0-0.2) Laboratory Tests Test 11/17/18 05:00 White Blood Count 7.3 x10^3/uL (4.0-11.0) Red Blood Count 4.21 x10^6/uL (3.50-5.40) Hemoglobin 11.9 g/dL (12.0-15.5) Hematocrit 35.6 % (36.0-47.0) Mean Corpuscular Volume 85 fL (79-100) Mean Corpuscular Hemoglobin 28 pg (25-35) Mean Corpuscular Hemoglobin Concent 34 g/dL (31-37) Red Cell Distribution Width 14.7 % (11.5-14.5) Platelet Count 185 x10^3/uL (140-400) Neutrophils (%) (Auto) 63 % (31-73) Lymphocytes (%) (Auto) 29 % (24-48) Monocytes (%) (Auto) 6 % (0-9) Eosinophils (%) (Auto) 2 % (0-3) Basophils (%) (Auto) 0 % (0-3) Neutrophils # (Auto) 4.6 x10^3uL (1.8-7.7) Lymphocytes # (Auto) 2.1 x10^3/uL (1.0-4.8) Monocytes # (Auto) 0.4 x10^3/uL (0.0-1.1) Eosinophils # (Auto) 0.2 x10^3/uL (0.0-0.7) Basophils # (Auto) 0.0 x10^3/uL (0.0-0.2) Microbiology 11/13/18 Urine Culture - Final, Complete 11/13/18 Urine Culture Result 1 (DARLENE) - Final, Complete 11/13/18 Antimicrobic Susceptibility - Final, Complete Medications Current Medications Acetaminophen (Tylenol) 650 mg BID PO ; Start 11/10/18 at 12:30; Stop 11/10/18 at 22:06; Status DC Acetaminophen (Tylenol) 650 mg PRN Q8HRS PRN PO MILD PAIN Last administered on 11/15/18 20:52; Start 11/10/18 at 12:00 Amlodipine Besylate (Norvasc) 5 mg DAILY PO Last administered on 11/14/18 08: 04; Start 11/10/18 at 12:30; Stop 11/14/18 at 09:04; Status DC Apixaban (Eliquis) 2.5 mg BID PO Last administered on 11/12/18 09:32; Start at 12:30; Stop 11/12/18 at 13:23; Status DC Atorvastatin Calcium (Lipitor) 20 mg HS PO Last administered on 11/16/18 20:06 ; Start 11/10/18 at 21:00 Docusate Sodium (Colace) 200 mg DAILY08 PO Last administered on 11/17/18 07:56 ; Start 11/10/18 at 12:30 Levothyroxine Sodium (Synthroid) 75 mcg DAILYAC PO Last administered on 07:56; Start 11/10/18 at 12:30 Magnesium Hydroxide (Milk Of Magnesia) 400 mg PRN DAILY PRN PO CONSTIPATION Last administered on 11/12/18 15:38; Start 11/10/18 at 12:00 Metoprolol Tartrate (Lopressor) 25 mg DAILY PO Last administered on 11/17/18 07 :57; Start 11/10/18 at 12:30 Nystatin (Nystop) 1 bob BID TP Last administered on 11/16/18 20:07; Start at 12:30 Vitamin D (Vitamin D3) 1,000 unit DAILY PO Last administered on 11/17/18 07:56 ; Start 11/10/18 at 12:30 Cyanocobalamin (Vitamin B-12) 250 mcg DAILY PO Last administered on 11/17/18 07 :57; Start 11/10/18 at 12:30 Famotidine (Pepcid) 40 mg DAILY PO Last administered on 11/17/18 07:56; Start 11/10/18 at 12:30 Loperamide HCl (Imodium) 2 mg PRN QID PRN PO DIARRHEA; Start 11/10/18 at 12:30 Magnesium Oxide (Magnesium Oxide) 400 mg DAILY08 PO Last administered on 07:57; Start 11/10/18 at 12:30 Multivitamins (Thera M Plus) 1 tab DAILY08 PO Last administered on 11/17/18 07: 56; Start 11/10/18 at 12:30 Ondansetron HCl (Zofran Odt) 4 mg PRN Q6HRS PRN PO NAUSEA/VOMITING Last administered on 11/12/18 09:22; Start 11/10/18 at 12:30 Polyethylene Glycol (miraLAX PACKET) 17 gm DAILY08 PO Last administered on 07:54; Start 11/10/18 at 12:30 Sodium Chloride (Saline Mist Nasal) 1 bob PRN Q1HR PRN NS NASAL CONGESTION; Start 11/10/18 at 12:30 Non-Formulary Medication (Ubidecarenone (Coenzyme Q10)) 100 mg DAILY08 PO ; Start 11/11/18 at 08:00; Status UNV Oxycodone/ Acetaminophen (Percocet 7.5/ 325) 1 tab PRN Q6HRS PRN PO MODERATE TO SEVERE PAIN Last administered on 11/17/18 02:37; Start 11/10/18 at 12:00 Linezolid/Dextrose 300 ml @ 300 mls/hr Q12HR IV Last administered on at 08:38; Start 11/10/18 at 13:00; Stop 11/15/18 at 13:03; Status DC Lactobacillus Rhamnosus (Culturelle) 1 cap BID PO Last administered on 07:56; Start 11/10/18 at 12:30 Bisacodyl (Dulcolax Tab) 10 mg PRN Q12HRS PRN PO CONSTIPATION, 2nd CHOICE; Start 11/10/18 at 12:00 Fentanyl Citrate (Fentanyl 2ml Vial) 50 mcg PRN Q2HR PRN IV PAIN Last administered on 11/11/18at 11:04; Start 11/10/18 at 22:15; Stop 11/12/18 at 13:14 ; Status DC Diphenhydramine HCl (Benadryl) 25 mg PRN QHS PRN PO INSOMNIA Last administered on 11/10/18at 22:30; Start 11/10/18 at 22:15; Stop 11/11/18 at 14:28; Status DC Fentanyl Citrate (Fentanyl 2ml Vial) 50 mcg PRN Q2HR PRN IV PAIN; Start at 08:15 Ascorbic Acid (Vitamin C) 500 mg DAILY PO Last administered on 11/17/18 07:56; Start 11/11/18 at 12:00 Info (Anti-Coagulation Monitoring By Pharmacy) 1 each PRN DAILY PRN MC SEE COMMENTS Last administered on 11/16/18at 13:34; Start 11/11/18 at 14:15 Diphenhydramine HCl (Benadryl) 25 mg PRN Q6HRS PRN PO ITCHING/ INSOMNIA; Start 11/11/18 at 14:30 Apixaban (Eliquis) 5 mg BID PO Last administered on 11/16/18at 20:06; Start at 21:00 Piperacillin Sod/ Tazobactam Sod 3.375 gm/Sodium Chloride 50 ml @ 100 mls/hr Q6HRS IV Last administered on 11/17/18at 05:47; Start 11/12/18 at 17:00 Prednisone (Prednisone) 20 mg 1X ONCE PO Last administered on 11/12/18at 18:09 ; Start 11/12/18 at 18:00; Stop 11/12/18 at 18:01; Status DC Prednisone (Prednisone) 20 mg 1X ONCE PO Last administered on 11/12/18at 23:19 ; Start 11/12/18 at 23:00; Stop 11/12/18 at 23:01; Status DC Prednisone (Prednisone) 20 mg 1X ONCE PO Last administered on 11/13/18at 06:16 ; Start 11/13/18 at 06:00; Stop 11/13/18 at 06:01; Status DC Diphenhydramine HCl (Benadryl) 50 mg PRN Q6HRS PRN PO ITCHING Last administered on 11/13/18at 14:21; Start 11/13/18 at 12:01 Alteplase, Recombinant (Cathflo For Central Catheter Clearance) 1 mg 1X ONCE INT CAT Last administered on 11/13/18at 06:06; Start 11/13/18 at 05:30; Stop at 05:31; Status DC Iohexol (Omnipaque 300 Mg/ml) 200 ml 1X ONCE IJ Last administered on at 14:30; Start 11/13/18 at 14:30; Stop 11/13/18 at 14:40; Status DC Info (CONTRAST GIVEN -- Rx MONITORING) 1 each PRN DAILY PRN MC SEE COMMENTS; Start 11/13/18 at 14:45; Stop 11/15/18 at 14:44; Status DC Amlodipine Besylate (Norvasc) 10 mg DAILY PO Last administered on 11/17/18at 07: 55; Start 11/14/18 at 09:10 Clonidine HCl (Catapres) 0.1 mg PRN Q1HR PRN PO HYPERTENSION, SEE COMMENTS; Start 11/14/18 at 09:15 Active Scripts Active Reported Saline Nasal [place] (Sodium Chloride) 30 Ml [place] 1 [place] NS PRN Q1HR PRN Ondansetron Hcl 4 Mg Tablet 1 Tab PO PRN Q6HRS Nystatin 15 Gm Powder 15 Gm TP BID Metoprolol Tartrate 25 Mg Tablet 25 Mg PO DAILY Levothyroxine Sodium 75 Mcg Tablet 75 Mcg PO DAILYAC DURAGESIC 100mcg/hr (Fentanyl) 1 Each Patch.td72 1 Patch TD Q72H Famotidine 40 Mg Tablet 40 Mg PO DAILY Cranberry (Cranberry Extract) 425 Mg Capsule 850 Mg PO BID Rolaids Chewable Tablet (Calcium Carb/Magnesium Hydrox) 1 Each Tab.chew 1 Each PO PRN Q6HRS PRN Atorvastatin Calcium 20 Mg Tablet 20 Mg PO HS Eliquis (Apixaban) 2.5 Mg Tablet 2.5 Mg PO BID Amlodipine Besylate 5 Mg Tablet 5 Mg PO DAILY Pro-Stat Liquid (Amino Acids/Protein Hydrolys) 30 Ml Liquid 30 Ml PO DAILY Tylenol (Acetaminophen) 325 Mg Tablet 650 Mg PO PRN Q8HRS PRN Milk Of Magnesia (Magnesium Hydroxide) 400 Mg/5 Ml Oral.susp 400 Mg PO PRN DAILY PRN Loperamide (Loperamide Hcl) 2 Mg Capsule 2 Mg PO PRN QID PRN Bisacodyl 10 Mg Supp.rect 10 Mg RC PRN DAILY PRN Vitamin B-12 (Cyanocobalamin (Vitamin B-12)) 250 Mcg Tablet 250 Mcg PO DAILY Floranex Tablet (Acidophilus/Bulgaricus) 1 Each Tablet 1 Each PO BID Vitamin D (Cholecalciferol (Vitamin D3)) 1,000 Unit Capsule 1,000 Unit PO DAILY Miralax (Polyethylene Glycol 3350) 17 Gm Powd.pack 1 Pkt PO DAILY08 Multivitamins (Multivitamin) 1 Each Tablet 1 Each PO DAILY08 Magnesium Oxide 400 Mg Tablet 400 Mg PO DAILY08 Docusate Sodium 100 Mg Capsule 200 Mg PO DAILY08 Coenzyme Q10 (Ubidecarenone) 100 Mg Capsule 100 Mg PO DAILY08 Tylenol (Acetaminophen) 325 Mg Tablet 650 Mg PO BID Vitals/I & O Vital Sign - Last 24 Hours 11/16/18 11/16/18 11/16/18 11/16/18 11:00 11:38 12:41 15:00 Temp 97.8 98.0 97.9 97.8 98.0 97.9 Pulse 82 72 84 Resp 17 17 18 17 B/P (MAP) 125/62 (83) 149/80 (103) 126/69 (88) Pulse Ox 99 96 95 O2 Delivery Room Air Room Air Room Air Room Air O2 Flow Rate 2.0 2.0 11/16/18 11/16/18 11/16/18 11/16/18 19:00 20:06 20:15 23:00 Temp 97.7 98.0 97.7 98.0 Pulse 89 86 Resp 20 20 20 B/P (MAP) 135/73 (93) 128/76 (93) Pulse Ox 96 97 O2 Delivery Room Air Room Air Room Air Room Air 11/17/18 11/17/18 11/17/18 11/17/18 02:37 03:06 03:45 07:00 Temp 98.5 98.4 98.5 98.4 Pulse 76 83 Resp 20 20 20 20 B/P (MAP) 132/74 (93) 156/79 (104) Pulse Ox 95 96 O2 Delivery Room Air Room Air Room Air Room Air 11/17/18 11/17/18 07:55 07:57 Pulse 83 83 B/P (MAP) 156/79 156/79 Intake and Output 11/16/18 11/16/18 11/17/18 15:00 23:00 07:00 Intake Total 650 ml 230 ml 50 ml Output Total 550 ml Balance 650 ml 230 ml -500 ml HAYDEE NEWTON III DO Nov 17, 2018 10:20
[2018-11-17 11:00] VITALS: BP 121/75
--- NOTE | 2018-11-17 13:45 | NUR ---
SW following pt. SW phoned and faxed orders to [facility] . SW also confirmed they are able to accommodate IV abx so no LTAC screen is needed. Pt will transport via facility arranged stretcher at 1530. Pt aware of plan and agreeable. MICHELA left a voice mail to pt's daughter, Isamar regarding dc plan. Packet on chart and Discussed with RN.
--- NOTE | 2018-11-17 20:31 | DS ---
DATE OF DISCHARGE: 11/17/2018 ADMISSION DIAGNOSES: 1. Urosepsis. 2. History of suprapubic catheter. 3. New findings of a left renal mass. 4. Debility. 5. Chronic anticoagulation. 6. Hypertension. DISCHARGE DIAGNOSES: 1. Resolving sepsis. 2. Resolving urinary tract infection. 3. Chronic suprapubic Miller. 4. Renal mass. 5. Chronic anticoagulation. 6. Hypertension. 7. Chronic pain. 8. Arthritis. 9. Constipation. 10. Anemia. 11. Urinary tract infections. 12. Hypothyroidism. 13. Gastroesophageal reflux disease. CONSULTS: Dr. Spence and Dr. Bazan. PROCEDURES: None. HOSPITAL COURSE: The patient is a pleasant elderly female who resides in a nursing facility. Basically, she presented with UTI with sepsis. She has a suprapubic Miller. Imaging studies were showing a renal mass as well. We admitted her. We gave her IV fluids and IV antibiotics. The above consults were obtained. A cystogram showed a small opacity in the bladder containing several diverticula. There was also some bladder incontinence and suprapubic Miller catheter was noted as well. Overall, the patient has returned to her baseline. I saw and examined her this morning. Her heart tones are normal. Her lungs were clear. She has a suprapubic Miller, which was in place and working well. She is doing well cognitively. Plan to discharge back to her facility. DISPOSITION: [facility]. ACTIVITY: As tolerated. DIET: Low sodium. MEDICATIONS: Please see MRAD. TOTAL TIME ON DISCHARGE: 38 minutes. HAYDEE NEWTON DO DR: SG/chevy JOB#: [id number] / [id number]
== END 2018-11-17 14:23 | DRG 698 ==
LOC: 5 NORTH 10:37
PROVIDERS: ADMIT Internal Medicine; ATTEND Internal Medicine
PROC: BT1B1ZZ Fluoroscopy of Bladder and Urethra using Low Osmolar Contrast (ICD-10-PCS; principal; 2018-11-13)
DX: T83.518A Infection and inflammatory reaction due to other urinary catheter, initial encounter (principal); A41.9 Sepsis, unspecified organism; N13.6 Pyonephrosis; N28.89 Other specified disorders of kidney and ureter; E66.9 Obesity, unspecified; N26.1 Atrophy of kidney (terminal); N28.1 Cyst of kidney, acquired; M19.90 Unspecified osteoarthritis, unspecified site; B96.5 Pseudomonas (aeruginosa) (mallei) (pseudomallei) as the cause of diseases classified elsewhere; E03.9 Hypothyroidism, unspecified; D64.9 Anemia, unspecified; E78.5 Hyperlipidemia, unspecified; F20.9 Schizophrenia, unspecified; G89.29 Other chronic pain; I11.0 Hypertensive heart disease with heart failure; I48.91 Unspecified atrial fibrillation; I50.9 Heart failure, unspecified; J44.9 Chronic obstructive pulmonary disease, unspecified; K59.00 Constipation, unspecified; K21.9 Gastro-esophageal reflux disease without esophagitis; Y84.6 Urinary catheterization as the cause of abnormal reaction of the patient, or of later complication, without mention of misadventure at the time of the procedure; F41.9 Anxiety disorder, unspecified; Z74.01 Bed confinement status; Z90.710 Acquired absence of both cervix and uterus; Z93.59 Other cystostomy status; Z99.3 Dependence on wheelchair; Z79.01 Long term (current) use of anticoagulants; Z88.6 Allergy status to analgesic agent; Z88.1 Allergy status to other antibiotic agents; Z88.2 Allergy status to sulfonamides; Z88.0 Allergy status to penicillin; Z88.8 Allergy status to other drugs, medicaments and biological substances; Z86.73 Personal history of transient ischemic attack (TIA), and cerebral infarction without residual deficits; Z87.440 Personal history of urinary (tract) infections; Z87.442 Personal history of urinary calculi; Z83.3 Family history of diabetes mellitus; Z68.35 Body mass index [BMI] 35.0-35.9, adult
CPT/HCPCS: 36415; 74430; 80048; 81001; 85025; 85651; 87086; 87186; J2020; J2543; J3010; J7512; Q0162; Q0163; Q9967

== ENCOUNTER 2020-02-09 12:38 | Emergency (ER) | payer MEDICARE, OTHER ==
[~2020-02-09] VITALS: Ht 172.7 cm; Wt 89.0 kg
[~2020-02-09 12:38] MED LIST changes: +AMIN30LI PO; +AMLO5TAB10 PO; +APIX2.5T PO; +ATOR20TA58 PO; -BISA10SU2 RC; +BISA10SU4 RC; +CALC-515 PO; -CALC300T42 PO; +CEFD300C PO; +CLON0.1T12 PO; +CRAN425C3 PO; +DIPH50CA PO; +FAMO40TA4 PO; +FENT1PAT93 TD; +HYOS0.1222 PO; +LEVO75TA5 PO; -MAGN400T3 PO; +MAGN400T5 PO; +METO25TA4 PO; +MULT-445 PO; -MULT1TAB52 PO; +NYST15PO9 TP; +ONDA-84 PO; +SODI30SP NS; +SPIR50TA PO; -TIZA4TAB PO; +TIZA4TAB2 PO; -WARF-78 PO; +WARF5TAB2 PO; +[UNRECOGNIZED DRUG - CODE] PO
--- NOTE | 2020-02-09 13:24 | PHYS DOC ---
Past Medical History Smoking Status: Never Smoker General Adult EDM: Chief Complaint: HYPOTENSION HPI: HPI: Patient is an 84-year-old [place] [facility] patient who was sent in secondary to low blood pressure. Patient has absolutely no complaints. She denies any pain she is not had any fever she denies nausea or vomiting. She is recently been in the hospital somewhere she is not sure for what but again she has no complaints today. [] Review of Systems: Review of Systems: Constitutional: Denies fever or chills. [] Eyes: Denies change in visual acuity. [] HENT: Denies nasal congestion or sore throat. [] Respiratory: Denies cough or shortness of breath. [] Cardiovascular: Denies chest pain or edema. [] GI: Denies abdominal pain, nausea, vomiting, bloody stools or diarrhea. [] : Denies dysuria. [] Musculoskeletal: Denies back pain or joint pain. [] Integument: Denies rash. [] Neurologic: Denies headache, focal weakness or sensory changes. [] Endocrine: Denies polyuria or polydipsia. [] Lymphatic: Denies swollen glands. [] Psychiatric: Denies depression or anxiety. [] Heart Score: Risk Factors: Risk Factors: DM, Current or recent (<one month) smoker, HTN, HLP, family hist ory of CAD, obesity. Risk Scores: Score 0 - 3: 2.5% MACE over next 6 weeks - Discharge Home Score 4 - 6: 20.3% MACE over next 6 weeks - Admit for Clinical Observation Score 7 - 10: 72.7% MACE over next 6 weeks - Early Invasive Strategies Allergies: Allergies: Allergies Coded Allergies Type Severity Reaction Last Updated Verified Iodine and Iodide Containing Produc Allergy Intermediate 03/26/19 Yes Sulfa (Sulfonamide Antibiotics) Allergy Intermediate 03/26/19 Yes amoxicillin Allergy Intermediate 10/11/19 Yes bacitracin Allergy Intermediate 03/26/19 Yes cephalexin Allergy Intermediate 10/11/19 Yes ciprofloxacin Allergy Intermediate 03/26/19 Yes colistimethate sodium Allergy Intermediate 10/11/19 Yes dexamethasone Allergy Intermediate 03/26/19 Yes doxycycline Allergy Intermediate 03/26/19 Yes gramicidin D Allergy Intermediate 10/11/19 Yes morphine Allergy Intermediate 03/26/19 Yes moxifloxacin Allergy Intermediate 03/26/19 Yes neomycin Allergy Intermediate 03/26/19 Yes polymyxin B Allergy Intermediate 03/26/19 Yes pramoxine Allergy Intermediate 10/11/19 Yes silver sulfadiazine Allergy Intermediate 03/26/19 Yes sulfamethoxazole Allergy Intermediate 10/11/19 Yes trimethoprim Allergy Intermediate 10/11/19 Yes vancomycin Allergy Intermediate 03/26/19 Yes Physical Exam: PE: Constitutional: Frail, elderly no distress [] HENT: Normocephalic, atraumatic, bilateral external ears normal, oropharynx moist, no oral exudates, nose normal. [] Eyes: PERRLA, EOMI, conjunctiva normal, no discharge. [] Neck: Normal range of motion, no tenderness, supple, no stridor. [] Cardiovascular:Heart rate regular rhythm, no murmur [] Lungs & Thorax: Bilateral breath sounds clear to auscultation [] Abdomen: Bowel sounds normal, soft, no tenderness, no masses, no pulsatile masses. : Indwelling Miller [] Skin: Warm, dry, no erythema, no rash. [] Back: No tenderness, no CVA tenderness. [] Extremities: No tenderness, no cyanosis, no clubbing, ROM intact, no edema. [] Neurologic: Alert and oriented X 3, normal motor function, normal sensory function, no focal deficits noted. [] Psychologic: Affect normal, judgement normal, mood normal. [] EKG: EKG: [] Radiology/Procedures: Radiology/Procedures: [] Course & Med Decision Making: Course & Med Decision Making Pertinent Labs and Imaging studies reviewed. (See chart for details) [] Dragon Disclaimer: Dragon Disclaimer: This electronic medical record was generated, in whole or in part, using a voice recognition dictation system. Departure Departure Impression: Primary Impression: Hypotension Qualified Codes: I95.0 - Idiopathic hypotension Disposition: HOME, SELF-CARE Condition: STABLE Referrals: TOMMY LEWIS (PCP) Patient Instructions: Hypotension Additional Instructions: Blood pressure was normal here in the emergency department EMS also reported a normal blood pressure Justicifation of Admission Dx: Justifications for Admission: Justification of Admission Dx: No CASE WASHINGTON DO Feb 09, 2020 13:24
[2020-02-09 16:00] VITALS: BP 123/71
--- NOTE | 2020-02-10 05:26 | EKG ---
[facility] [address] [place] [address] Test Date: 2020-02-09 Test Time: 13:00:39 Pat Name: HAYLEY SENIOR Department: Room: Gender: F Hoop Coiler: : 1935 Requested By: CASE WASHINGTON Order Number: [id number] Reading MD: Measurements Intervals [place] Rate: 66 P: MA: QRS: -20 QRSD: 66 T: 4 QT: 442 QTc: 465 Interpretive Statements HR: 66 Severity: 0 1935 cm [id number] HAYLEY ?? 0 kg HAYLEY
== END 2020-02-09 16:04 | disposition home or self-care (01) ==
LOC: ER 12:38
DX: I95.0 Idiopathic hypotension (principal); Z88.1 Allergy status to other antibiotic agents; Z88.2 Allergy status to sulfonamides; Z91.041 Radiographic dye allergy status; Z88.5 Allergy status to narcotic agent; Z88.8 Allergy status to other drugs, medicaments and biological substances
CPT/HCPCS: 93005; 99284